=== PATIENT | male | born 1955 | race Caucasian/White ===

== ENCOUNTER → 2022-02-01 | Outpatient (REF) | payer MEDICARE, SELFPAY ==
[2022-02-01 08:18] LABS: Absolute Lymphocyte Count 1.79 X10^3/uL (0.83-4.51); Absolute Neutrophil Count 4.6 X10^3/uL (2.0-7.7); Basophil# 0.02 X10^3/uL; Basophil% 0.3 % (0-1); Eosinophil# 0.06 X10^3/uL; Eosinophils% 0.8 % (0-5); Hematocrit 39.4 % (40-54); Hemoglobin 13.4 g/dL (13.0-16.5); Lymphocyte # 1.79 X10^3/ul (0.83-4.51); Lymphocyte % 24.3 % (19-41); Mean Platelet Vol. 9.4 fl (6.2-12.0); Monocyte# 0.88 X10^3/uL; Monocyte% 11.9 % (0-10); NRBC Flagged by Analyzer 0 % (0-5); Neutrophil # 4.58 X10^3/uL (2.7-7.7); Platelet Count 214 K/mm3 (150-450); RBC Distribution Width CV 13.2 % (11.6-14.6); RBC Distribution Width SD 46.9 fl (35.1-43.9); Red Blood Count 4.06 M/mm3 (4.6-6.2); White Blood Count 7.4 K/mm3 (4.4-11.0)
[2022-02-01 08:45] LABS: Carbamazepine (Tegretol) 11.7 ug/mL (4.0-12.0)
[2022-02-01 08:47] LABS: Vitamin D,25 Hydroxy 34.4 ng/mL
[2022-02-01 08:49] LABS: ALB/GLOB Ratio 0.9 RATIO (0.9-2.4); AST(SGOT) 19 U/L (15-37); Alanine Aminotransfer ALT/SGPT 14 U/L (16-61); Albumin, Serum 3.4 g/dL (3.2-5.0); Alkaline Phosphatase 135 U/L (45-117); Anion Gap 9 (5-15); BUN 4 mg/dL (7-18); BUN/Creat Ratio 7.3 RATIO (10-20); Calcium,Total 8.2 mg/dL (8.5-10.1); Chloride 93 mmol/L (98-107); Creatinine, Serum 0.55 mg/dL (0.70-1.30); EST Glomerular Filtration Rate 159 mL/min (>60); Est Glom Filt Rate - Afr Amer 192 mL/min (>60); Globulin 3.9 g/dL (2.2-4.2); Glucose 82 mg/dL (74-106); Protein, Total 7.3 g/dL (6.4-8.2); Sodium Level 129 mmol/L (136-145)
== END ==
LOC: OLS.SW300 06:00
PROVIDERS: Visit Provider Internal Medicine
DX: J44.9 Chronic obstructive pulmonary disease, unspecified; Z79.899 Other long term (current) drug therapy
CPT/HCPCS: 36415; 80053; 80156; 82306; 85025

== ENCOUNTER → 2022-02-09 | Outpatient (REF) | payer MEDICARE, SELFPAY ==
[2022-02-09 09:35] LABS: Urine Sodium 41 mmol/L (Not Establ.)
[2022-02-09 10:24] LABS: Osmolality, Urine 639 mOsm/KG
== END ==
LOC: OLS.SW300 08:42
PROVIDERS: Visit Provider Internal Medicine
DX: R53.83 Other fatigue (principal); E87.1 Hypo-osmolality and hyponatremia; R53.1 Weakness
CPT/HCPCS: 83935; 84300

== ENCOUNTER → 2022-02-10 | Outpatient (REF) | payer MEDICARE, SELFPAY ==
[2022-02-10 07:37] LABS: Hematocrit 44.2 % (40-54); Hemoglobin 14.8 g/dL (13.0-16.5); Mean Corp Hgb Conc 33.5 g/dL (32-36); Mean Corpuscular Hgb 33.5 pg (27.0-32.0); Mean Platelet Vol. 9.3 fl (6.2-12.0); Platelet Count 319 K/mm3 (150-450); RBC Distribution Width CV 13.2 % (11.6-14.6); RBC Distribution Width SD 49.1 fl (35.1-43.9); Red Blood Count 4.42 M/mm3 (4.6-6.2); White Blood Count 5.5 K/mm3 (4.4-11.0)
[2022-02-10 07:56] LABS: ALB/GLOB Ratio 0.8 RATIO (0.9-2.4); AST(SGOT) 27 U/L (15-37); Alanine Aminotransfer ALT/SGPT 21 U/L (16-61); Albumin, Serum 3.6 g/dL (3.2-5.0); Alkaline Phosphatase 122 U/L (45-117); Anion Gap 8 (5-15); BUN 9 mg/dL (7-18); BUN/Creat Ratio 13.4 RATIO (10-20); Calcium,Total 9.1 mg/dL (8.5-10.1); Chloride 97 mmol/L (98-107); Creatinine, Serum 0.67 mg/dL (0.70-1.30); EST Glomerular Filtration Rate 125 mL/min (>60); Est Glom Filt Rate - Afr Amer 152 mL/min (>60); Globulin 4.6 g/dL (2.2-4.2); Glucose 107 mg/dL (74-106); Potassium 4.3 mmol/L (3.5-5.1); Protein, Total 8.2 g/dL (6.4-8.2); Sodium Level 133 mmol/L (136-145)
[2022-02-10 08:26] LABS: Vitamin B12 363 pg/mL (211-911)
== END ==
LOC: OLS.SW300 05:46
PROVIDERS: Visit Provider Internal Medicine
DX: R53.83 Other fatigue (principal); R53.1 Weakness
CPT/HCPCS: 36415; 80053; 82607; 84443; 85027

== ENCOUNTER → 2022-03-16 | Outpatient (CLI) | payer MEDICARE, MEDICAID, SELFPAY ==
--- NOTE | 2022-03-16 13:58 | CT_ITS ---
STUDY: CT SOFT TISSUE NECK WITH CONTRAST REASON FOR EXAM: Male, 66 years old. History of laryngeal carcinoma. RADIATION DOSAGE (If Supplied By Facility): CTDIvol = ( 17.90 ) mGy, DLP = ( 612.72 ) mGycm TECHNIQUE: The patient was scanned in a multi-detector CT scanner. High resolution transaxial imaging was performed following intravenous administration of IV 75mL Isovue-370. Sagittal and coronal images were reconstructed. Individualized dose optimization techniques were used for this CT. COMPARISON: None. FINDINGS: There is evidence of a 2.6 cm x 2.4 cm mass in the right parotid gland. There is also evidence of a 1.6 cm x 1.7 cm and 2 cm x 1.8 cm masses in the inferior aspect of the right parotid gland. Normal bilateral floor layer tile spaces. Normal bilateral parapharyngeal spaces. Calcified plaques at the level of the carotid bifurcations. Normal bilateral sublingual and submandibular glands and spaces. Normal visualized nasopharynx. Normal retropharyngeal space. Normal perivertebral space. There is evidence of a 3.4 cm by 2.9 cm x 3.5 cm solid mass in the right lateral oropharyngeal region. This extends from the base of the tongue and cephalad to the right oropharyngeal wall. There is evidence of a multiple enlarged right cervical lymph nodes. Surgical clips are seen along the posterior aspect of the mentioned right hypopharyngeal mass. The patient is status post laryngectomy. A tracheostomy tube is seen within the trachea. Normal bilateral lobes of the thyroid gland. Normal visualized pulmonary apices. Opacification of the right maxillary sinus. There is multilevel degenerative changes of the cervical spine. CT/Soft Tissue Neck WITH Contrast IMPRESSION: There is a 3.4 cm x 2.9 cm x 3.5 centimeter solid mass in the right lateral oropharyngeal area extending from base of the tongue to the right paraoropharyngeal wall. Right cervical lymphadenopathy. Masses in the right parotid gland. Partial opacification of the right maxillary sinus. Electronically Signed: Richard Rowe MD at 13:32 EDT ,
--- NOTE | 2022-03-16 13:58 | CT_ITS ---
STUDY: CT BRAIN WITH AND WITHOUT CONTRAST REASON FOR EXAM: Male, 66 years old. MASS RADIATION DOSAGE (If Supplied By Facility): CTDIvol = ( 44.99 ) mGy, DLP = ( 1715.95 ) mGycm TECHNIQUE: Transaxial CT imaging of the brain was performed pre and post contrast administration. The examination was performed with intravenous administration of IV 75mL Isovue-370. Individualized dose optimization techniques were used for this CT. COMPARISON: None. FINDINGS: Normal soft tissue structures. Normal calvarium. Moderate atrophy and periventricular white matter ischemic changes.. Normal basal ganglia and thalami. Normal brainstem. Normal cerebellum. There is no intracranial hemorrhage. There are no findings of an acute ischemic infarction. No enhancing lesions following contrast administration. Moderate mucosal thickening in the right maxillary sinus CT/Brain/Head W/WO Contrast IMPRESSION: Moderate atrophy and periventricular white matter ischemic changes. No evidence for metastatic disease Incidental finding of nonspecific mass in the visualized portion of the right parotid gland which demonstrates diffusely increased enhancement Recommend dedicated CT or MRI parotid gland for further evaluation Electronically Signed: Luis Antonio Paul MD at 21:43 EDT ,
== END | disposition home or self-care (01) ==
PROVIDERS: Referring Provider Internal Medicine; Visit Provider Internal Medicine
DX: H93.8X1 Other specified disorders of right ear (principal); Z85.21 Personal history of malignant neoplasm of larynx
CPT/HCPCS: 70470; 70491; Q9967

== ENCOUNTER → 2022-04-20 | Outpatient (REF) | payer MEDICARE, SELFPAY ==
[2022-04-20 10:46] LABS: Anion Gap 10 (5-15); BUN 3 mg/dL (7-18); BUN/Creat Ratio 6.4 RATIO (10-20); Chloride 90 mmol/L (98-107); Creatinine, Serum 0.47 mg/dL (0.70-1.30); EST Glomerular Filtration Rate 188 mL/min (>60); Est Glom Filt Rate - Afr Amer 228 mL/min (>60); Glucose 93 mg/dL (74-106); Potassium 4.2 mmol/L (3.5-5.1); Sodium Level 126 mmol/L (136-145)
[2022-04-22 09:34] LABS: ALB/GLOB Ratio 0.8 RATIO (0.9-2.4); AST(SGOT) 10 U/L (15-37); Alanine Aminotransfer ALT/SGPT 12 U/L (16-61); Albumin, Serum 3.6 g/dL (3.2-5.0); Alkaline Phosphatase 125 U/L (45-117); Globulin 4.5 g/dL (2.2-4.2); Protein, Total 8.1 g/dL (6.4-8.2)
[2022-04-22 09:51] LABS: Hematocrit 41.3 % (40-54); Hemoglobin 13.5 g/dL (13.0-16.5); Mean Corp Hgb Conc 32.7 g/dL (32-36); Mean Corpuscular Hgb 34.1 pg (27.0-32.0); Mean Corpuscular Volume 104.3 fL (80-94); Mean Platelet Vol. 9.6 fl (6.2-12.0); Platelet Count 457 K/mm3 (150-450); RBC Distribution Width CV 15.2 % (11.6-14.6); RBC Distribution Width SD 58.5 fl (35.1-43.9); Red Blood Count 3.96 M/mm3 (4.6-6.2); White Blood Count 13.4 K/mm3 (4.4-11.0)
== END ==
LOC: OLS.SW 09:53
PROVIDERS: Visit Provider Internal Medicine
DX: R53.83 Other fatigue (principal); E03.9 Hypothyroidism, unspecified; Z79.899 Other long term (current) drug therapy
CPT/HCPCS: 36415; 80053; 84443; 85027

== ENCOUNTER → 2022-07-07 | Outpatient (REF) | payer MEDICARE, MEDICAID, SELFPAY ==
[2022-07-07 09:18] LABS: T3 Total - Triiodothyronine 0.71 ng/mL (0.6-1.81)
[2022-07-07 09:46] LABS: T4 Total, Thyroxin 4.3 ug/dL (4.5-12.1)
== END ==
LOC: OLS.SW 05:00
PROVIDERS: Visit Provider Family Medicine
DX: E03.9 Hypothyroidism, unspecified (principal)
CPT/HCPCS: 36415; 84436; 84443; 84480

== ENCOUNTER 2022-07-11 15:56 | Inpatient (IN) | payer MEDICARE, MEDICAID, SELFPAY ==
[2022-07-11] VITALS (27 sets, daily range): BP systolic 46–211; BP diastolic 29–148; PULSE 86–126; RESP 14–24; TEMP 36.1–36.8; O2SAT 92–100; BMI 25.1; BMI 23.7
--- NOTE | 2022-07-11 16:03 | EKG12_ITS ---
Test Reason : sob Blood Pressure : / mmHG Vent. Rate : 122 BPM Atrial Rate : 122 BPM P-R Int : 224 ms QRS Dur : 080 ms QT Int : 300 ms P-R-T Axes : 070 -57 074 degrees QTc Int : 427 ms Sinus tachycardia with 1st degree A-V block with Premature atrial complexes Left axis deviation Septal infarct , age undetermined Abnormal ECG Confirmed by ANKUSH AMAYA, LAST ([id number]), legal editor IGGY RAWLS ([id number]) on 07/12/2022 8:40:49 AM Referred By: Davidson Confirmed By:LAST LECHUGA MD
--- NOTE | 2022-07-11 16:03 | ED.VIS.DYS ---
HPI History of Present Illness Chief Complaint: Shortness of Breath Narrative Narrative: 66-year-old male presenting with altered mental status, dyspnea. He is unable to give a history. EMS reports that his baseline is able to communicate by writing. He is usually alert and oriented. EMS states that he acutely became ill about an hour ago, in the [place] [facility] was able to suction 600 cc of saliva out of his trach PFSH PFSH Medical History (Updated 07/11/22 @ 16:09 by Maria C Rivas) Anxiety Blindness of left eye COPD (chronic obstructive pulmonary disease) GERD (gastroesophageal reflux disease) Major depressive disorder Malignant neoplasm of larynx Home Medications alprazolam 0.5 mg tablet 0.5 mg PO BID 07/11/22 [History Last Taken Unknown] carbamazepine 300 mg capsule,extended release [id number] 300 mg PO BID 07/11/22 [History Last Taken Unknown] dexamethasone 2 mg tablet 2 mg PO DAILY 07/11/22 [History Last Taken Unknown] gabapentin 400 mg capsule 400 mg PO TID 07/11/22 [History Last Taken Unknown] guaifenesin 100 mg/5 mL oral liquid 200 mg PO Q4H PRN Cough 07/11/22 [History Last Taken Unknown] mirtazapine 45 mg tablet 45 mg PO DAILY 07/11/22 [History Last Taken Unknown] oxycodone 10 mg tablet 10 mg PO Q4H PRN PRN Pain 07/11/22 [History Last Taken Unknown] pantoprazole 40 mg tablet,delayed release 40 mg PO DAILY 07/11/22 [History Last Taken Unknown] zolpidem 5 mg tablet 5 mg PO DAILY 07/11/22 [History Last Taken Unknown] Allergy/AdvReac Type Severity Reaction Status Date / Time No Known Allergies Allergy Verified 07/11/22 16:06 Social History Smoking Status: Unknown if ever smoked EXAM Physical Exam Const Vital Signs: 07/11/22 15:57 07/11/22 16:09 07/11/22 16:11 Temperature 97.8 F Temperature Source Temporal Pulse Rate 122 H 120 H Respiratory Rate 20 H 24 H Respiratory Effort Respiratory Pattern Blood Pressure 211/92 H 211/92 H Blood Pressure Mean 131 131 Pulse Ox 96 96 95 Oxygen Delivery Method Trach Collar Trach Collar Trach Collar Oxygen Flow Rate (L/min) 10 10 10 Fraction of Inspired Oxygen (FIO2) 07/11/22 16:24 07/11/22 16:51 07/11/22 17:04 Temperature 97.4 F L Temperature Source Temporal Pulse Rate 118 H 122 H Respiratory Rate 21 H 21 H Respiratory Effort Accessory Muscle Use Respiratory Pattern Tachypnea Blood Pressure 195/90 H 192/87 H Blood Pressure Mean 125 122 Pulse Ox 94 100 Oxygen Delivery Method Trach Collar Mechanical Ventilator Oxygen Flow Rate (L/min) Fraction of Inspired Oxygen (FIO2) 07/11/22 17:04 07/11/22 17:00 07/11/22 18:05 Temperature 97.8 F 97.0 F L Temperature Source Temporal Temporal Pulse Rate 122 H 126 H 118 H Respiratory Rate 21 H 14 17 Respiratory Effort Respiratory Pattern Blood Pressure 192/87 H 126/70 H Blood Pressure Mean 122 88 Pulse Ox 100 100 100 Oxygen Delivery Method Mechanical Ventilator Mechanical Ventilator Oxygen Flow Rate (L/min) Fraction of Inspired Oxygen (FIO2) 40 07/11/22 18:05 Temperature Temperature Source Pulse Rate 118 H Respiratory Rate 16 Respiratory Effort Respiratory Pattern Blood Pressure 126/70 H Blood Pressure Mean 88 Pulse Ox 100 Oxygen Delivery Method Mechanical Ventilator Oxygen Flow Rate (L/min) Fraction of Inspired Oxygen (FIO2) MDM MDM MDM Narrative Medical decision making narrative: 66-year-old male presenting with altered mental status, tachypnea, tachycardia. Is unable to give me a significant history. I did attempt to call his sister who is his POA on record and was unable to get an answer back. I did speak with Dr. Pinto who sent some paperwork via fax which was pending. I did try to call his ENT of record, his oncologist of record and was placed on hold. Patient's paperwork states that he is full code. Since I cannot contact anybody to discuss his care I do believe the need to protect his airway. ABG was obtained and shows acidosis as well as hypercapnia. I did attempt to try hospice since he had already had a consult with them and was unable to get a hold of them. I spoke with Dr. Vázquez because the patient has had previous tracheostomy. 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 Recent diagnosis of squamous cell in the oropharynx in 2021 with extension to the soft palate and tongue and right lymph nodes. Dr. Vázquez recommended initially placing a 6-0 ET tube. Flexible bedside laryngoscope utilized by ED physician to assess the patient's ostomy. Appears to be patent. Initially believed the patient needed to be intubated to a depth of 20 cm. This was placed and this was visualized to be right mainstem bronchus on my interpretation of the chest x-ray. This was pulled back. Repeat chest x-ray shows good placement of this on my interpretation. Chest x-ray also on my interpretation also shows bilateral infiltrates. Patient had sepsis work-up initiated given vital signs and altered mental status. Patient apparently treated with vancomycin and Zosyn. CBC to assess white blood cell count, differential. He has an elevated leukocytosis of 23.7. Hemoglobin hematocrit are stable at 12.3/37.9. Platelets 547. Coagulation studies as part of sepsis work-up are normal PT/INR normal. CMP to assess liver function, liver function, electrolytes, glucose, anion gap. Sodium slightly low at 129. Chloride slight low 91. BUN 19 and creatinine 0.93. Glucose slightly elevated to 51 without anion gap. LFTs are unremarkable. Lactic acid returned at 2.3. Urinalysis is negative for infection. EtOH was obtained due to patient's history of EtOH abuse which I was able to find on [facility]. There is limited records on this however. I went through multiple notes which do not have any information on them at all. Eventually Dr. Pinto was able to send over some paperwork for my review. At this point the patient is stable. I still was not able to talk to any of the family. At this point the patient will need to be admitted. Dr. Vázquez stated that he would happy to help with that he care that he needed from his perspective. I discussed the case with Dr. Olvera as well. Prior to transfer to the floor patient had trach collar placed. Impression: 1. Bilateral pneumonia 2. Hypercapnic respiratory failure 3. Leukocytosis 4. Altered mental status 5. History of squamous cell cancer 6. Hyperglycemia 7. Lactic acidosis 8. Sepsis Lab Data Attestation: I reviewed the patient's lab results. Labs: Laboratory Results - last 24 hr 07/11/22 07/11/22 07/11/22 16:05 16:05 16:05 WBC 23.7 H RBC 3.70 L Hgb 12.3 L Hct 37.9 L MCV 102.4 H MCH 33.2 H MCHC 32.5 RDW Std Deviation 46.5 H RDW Coeff of Judd 12.3 Plt Count 547 H MPV 9.4 Immature Gran % (Auto) 1.400 H Neut % (Auto) 66.8 Lymph % (Auto) 26.1 Summers % (Auto) 4.4 Eos % (Auto) 0.8 Baso % (Auto) 0.5 Absolute Neuts (auto) 15.8 H Absolute Lymphs (auto) 6.18 H Nucleated RBC % 0 Differential Comment SCANNED PT 14.3 INR 1.1 APTT 32.0 Sodium 129 L Potassium 4.1 Chloride 91 L Carbon Dioxide 26.0 Anion Gap 12 BUN 19 H Creatinine 0.93 Estim Creat Clear Calc 74.57 Est GFR (MDRD) Af Amer 104 Est GFR (MDRD) Non-Af 86 BUN/Creatinine Ratio 20.5 H Glucose 251 H Lactic Acid Calcium 9.6 Total Bilirubin 0.30 AST 17 ALT 24 Alkaline Phosphatase 113 Total Protein 9.3 H Albumin 3.8 Globulin 5.5 H Albumin/Globulin Ratio 0.7 L Urine Color Urine Clarity Urine pH Ur Specific [place] Urine Protein Urine Glucose (UA) Urine Ketones Urine Occult Blood Urine Nitrite Urine Bilirubin Urine Urobilinogen Ur Leukocyte Esterase Urine RBC Urine WBC Ur Squamous Epith Cells Urine Bacteria Urine Mucus Ethyl Alcohol 07/11/22 07/11/22 07/11/22 16:05 16:38 17:37 WBC RBC Hgb Hct MCV MCH MCHC RDW Std Deviation RDW Coeff of Judd Plt Count MPV Immature Gran % (Auto) Neut % (Auto) Lymph % (Auto) Summers % (Auto) Eos % (Auto) Baso % (Auto) Absolute Neuts (auto) Absolute Lymphs (auto) Nucleated RBC % Differential Comment PT INR APTT Sodium Potassium Chloride Carbon Dioxide Anion Gap BUN Creatinine Estim Creat Clear Calc Est GFR (MDRD) Af Amer Est GFR (MDRD) Non-Af BUN/Creatinine Ratio Glucose Lactic Acid 2.3 H* Calcium Total Bilirubin AST ALT Alkaline Phosphatase Total Protein Albumin Globulin Albumin/Globulin Ratio Urine Color Yellow Urine Clarity Clear Urine pH 6.0 Ur Specific [place] 1.015 Urine Protein 30 H Urine Glucose (UA) Normal Urine Ketones Negative Urine Occult Blood Negative Urine Nitrite Negative Urine Bilirubin Negative Urine Urobilinogen Normal Ur Leukocyte Esterase Negative Urine RBC 0-5 SEEN Urine WBC 0-5 SEEN Ur Squamous Epith Cells 0 SEEN Urine Bacteria 0 SEEN Urine Mucus 0 SEEN Ethyl Alcohol < 3.0 ABG Data ABG results: ABG 07/11/22 07/11/22 16:46 18:09 Specimen Type ART ART Sample Site R Radial pH 7.16 L* 7.23 L Bicarbonate Actual 29.1 H 27.6 H Total CO2 32 30 Base Excess 0 0 O2 Saturation 91 L 97 O2 % 40 ABG pCO2 82.3 H* 65.3 H ABG pO2 81 113 H Radhames Test Positive Respiration Rate 14 O2 Delivery Device T Collar Adult Vent Liter Flow 10.0 Vent Mode AC Tidal Volume 400 POC PEEP 5 Crit Call To/Read Back Yes Blood Gas Notified Whom javier Radiography Diagnostic Testing: Clinical Impression(s) from Imaging Studies Chest X-Ray 07/11/22 16:35 IMPRESSION: Question COPD. There is chronic interstitial changes versus acute interstitial pneumonia the lung bases. Electronically Signed: Marcell Eason DO at 16:47 EST Reading Location ID and State: [employer] [facility] [employer] Tel [phone], Service support , Chest X-Ray 07/11/22 17:10 IMPRESSION: Endotracheal tube with its tip in the right mainstem bronchus. See recommendation above. Electronically Signed: Marcell Eason DO at 17:34 EST Reading Location ID and State: [employer] [facility] [employer] Tel [phone], Service support , Chest X-Ray 07/11/22 17:10 IMPRESSION: Satisfactory readjustment of the endotracheal tube position when compared with study of 5 minutes earlier. Electronically Signed: Marcell Eason DO at 17:35 EST Reading Location ID and State: [employer] [facility] [employer] Tel [phone], Service support , Critical Care Time Critical care time (excluding procedures): 30-74 minutes (40), Including time spent:, Discussing w/Consultants, Arranging Admission or Transfer and Performing Direct Patient Care at Bedside Discharge Plan Triage Chief Complaint: Shortness of Breath ED Provider: Juan Miguel Sierra Dx/Rx/DC Orders Prescriptions: No Action gabapentin 400 mg capsule 400 mg PO TID guaifenesin 100 mg/5 mL Liquid 200 mg PO Q4H PRN (Reason: Cough) alprazolam 0.5 mg tablet 0.5 mg PO BID dexamethasone 2 mg tablet 2 mg PO DAILY pantoprazole 40 mg tablet,delayed release (DR/EC) 40 mg PO DAILY mirtazapine 45 mg tablet 45 mg PO DAILY zolpidem 5 mg tablet 5 mg PO DAILY carbamazepine 300 mg capsule, ER multiphase 12 hr 300 mg PO BID oxycodone 10 mg tablet 10 mg PO Q4H PRN PRN (Reason: Pain) Primary Care Provider: Guillermo Pinto Referrals: Guillermo Pinto MD [Primary Care Provider] -
[2022-07-11 16:34] LABS: Absolute Lymphocyte Count 6.18 X10^3/uL (0.83-4.51); Absolute Neutrophil Count 15.8 X10^3/uL (2.0-7.7); Basophil# 0.11 X10^3/uL; Basophil% 0.5 % (0-1); Eosinophil# 0.18 X10^3/uL; Eosinophils% 0.8 % (0-5); Hematocrit 37.9 % (40-54); Hemoglobin 12.3 g/dL (13.0-16.5); Lymphocyte # 6.18 X10^3/ul (0.83-4.51); Lymphocyte % 26.1 % (19-41); Mean Corp Hgb Conc 32.5 g/dL (32-36); Mean Corpuscular Hgb 33.2 pg (27.0-32.0); Mean Corpuscular Volume 102.4 fL (80-94); Mean Platelet Vol. 9.4 fl (6.2-12.0); Monocyte# 1.03 X10^3/uL; Monocyte% 4.4 % (0-10); NRBC Flagged by Analyzer 0 % (0-5); Neutrophil # 15.83 X10^3/uL (2.7-7.7); Neutrophil % 66.8 % (47-70); POSITIVE DIFFERENTIAL YES; Platelet Count 547 K/mm3 (150-450); RBC Distribution Width CV 12.3 % (11.6-14.6); RBC Distribution Width SD 46.5 fl (35.1-43.9); White Blood Count 23.7 K/mm3 (4.4-11.0)
--- NOTE | 2022-07-11 16:35 | RAD_ITS ---
STUDY: X-RAY CHEST REASON FOR EXAM: Male, 66 years old. Dyspnea. Copious amount of secretions requiring suction. TECHNIQUE: Single AP portable view of the chest. COMPARISON: None. FINDINGS: The lungs are hyperexpanded. There is interstitial markings at the lung bases thought to be chronic however acute infiltrate cannot be ruled out. There is no demonstrated pleural abnormality. Normal size heart. Normal mediastinum and deirdre. Normal visualized pulmonary arteries. There is atherosclerotic calcification of the aortic arch with tortuosity. The thoracic spine is obscured by the mediastinum. Normal visualized ribs, clavicles, and shoulders. There is no demonstrated abnormality of the visualized soft tissue structures of the upper abdomen. RAD/Chest 1 View (Portable) IMPRESSION: Question COPD. There is chronic interstitial changes versus acute interstitial pneumonia the lung bases. Electronically Signed: Marcell Eason DO at 16:47 EST ,
[2022-07-11 16:40] LABS: Differential Indicated SCAN CRITERIA MET; International Normalized Ratio 1.1; Prothrombin Time (Protime)PT. 14.3 SECONDS (11.7-14.9)
[2022-07-11 16:45] LABS: Bacteria 0 SEEN /hpf (None Seen); Mucous, Urine 0 SEEN /hpf (<or=2+); Squamous Epithelial Cells - UA 0 SEEN /hpf (0-5)
[2022-07-11 16:51] LABS: ALB/GLOB Ratio 0.7 RATIO (0.9-2.4); AST(SGOT) 17 U/L (15-37); Alanine Aminotransfer ALT/SGPT 24 U/L (16-61); Albumin, Serum 3.8 g/dL (3.2-5.0); Alkaline Phosphatase 113 U/L (45-117); Anion Gap 12 (5-15); BUN 19 mg/dL (7-18); BUN/Creat Ratio 20.5 RATIO (10-20); Calcium,Total 9.6 mg/dL (8.5-10.1); Chloride 91 mmol/L (98-107); Creatinine, Serum 0.93 mg/dL (0.70-1.30); EST Glomerular Filtration Rate 86 mL/min (>60); Est Glom Filt Rate - Afr Amer 104 mL/min (>60); Estimated Creatinine Clearance 74.57 ml/min; Globulin 5.5 g/dL (2.2-4.2); Glucose 251 mg/dL (74-106); Potassium 4.1 mmol/L (3.5-5.1); Protein, Total 9.3 g/dL (6.4-8.2); Sodium Level 129 mmol/L (136-145)
[2022-07-11 16:56] LABS: Base Excess 0 mmol/L (-2 to +2); Bicarbonate 29.1 mmol/L (22-26); Blood Gas Specimen Type ART; O2 Delivery Device T Collar; PO2 81 mmHG (75-100); SO2 91 % (95-99); Total Carbon Dioxide 32 mmol/L; pCO2 82.3 mmHg (35-45); pH 7.16 (7.35-7.45)
--- NOTE | 2022-07-11 16:59 | NURSING ---
Dr. Heath, Dr. Sierra at bedside with RT to intubate through established trach stoma at this time.
[2022-07-11 17:00] LABS: Color, Urine Yellow (Yellow); Glucose, Dipstick Normal (Normal); Ketone-Dipstick Negative (Negative); Leukocyte Esterase-Dipstick Negative /ul (Negative); Nitrite-Dipstick Negative (Negative); Occult Blood-Urine Negative /ul (Negative); Protein-Dipstick 30 mg/dl (Negative); Specific Gravity, Urine 1.015 (1.002-1.030); Urine Bilirubin Dipstick Negative (Negative); Urine Clarity Clear (Clear); Urine Urobilinogen Normal (Normal)
--- NOTE | 2022-07-11 17:03 | NURSING ---
ET tube in at 14 to stoma
[2022-07-11 17:06] LABS: Differential Comment SCANNED
--- NOTE | 2022-07-11 17:10 | RAD_ITS ---
STUDY: X-RAY CHEST REASON FOR EXAM: Male, 66 years old. Endotracheal tube placement. Second attempt. TECHNIQUE: Single AP portable view of the chest. COMPARISON: July 11, 2022 (1705 hours). FINDINGS: Again seen is the endotracheal tube. The tip now lies approximately 3 cm above the aurora. Lungs are unchanged. There is no demonstrated pleural abnormality. Normal size heart. There is no change in the mediastinum, deirdre, pulmonary arteries or aorta. No osseous changes. There is no demonstrated abnormality of the visualized soft tissue structures of the upper abdomen. RAD/Chest 1 View (Portable) IMPRESSION: Satisfactory readjustment of the endotracheal tube position when compared with study of 5 minutes earlier. Electronically Signed: Marcell Eason DO at 17:35 EST ,
--- NOTE | 2022-07-11 17:10 | RAD_ITS ---
STUDY: X-RAY CHEST REASON FOR EXAM: Male, 66 years old. Endotracheal tube placement. First attempt. TECHNIQUE: Single AP portable view of the chest. COMPARISON: July 11, 2022 (1633 hours). FINDINGS: There is a endotracheal tube placed through a tracheostomy. The tip extends into the right mainstem bronchus approximately 3 cm beyond the aurora. This should be pulled back 5 cm. There is patchy density peripherally in the right upper lobe. The lungs are otherwise hyperexpanded. There is no demonstrated pleural abnormality. Normal size heart. Normal mediastinum and deirdre. Normal visualized pulmonary arteries. Normal visualized aortic arch and descending thoracic aorta. No osseous changes. There are surgical clips in the base of the neck. There is no demonstrated abnormality of the visualized soft tissue structures of the upper abdomen. RAD/Chest 1 View (Portable) IMPRESSION: Endotracheal tube with its tip in the right mainstem bronchus. See recommendation above. Electronically Signed: Marcell Eason DO at 17:34 EST ,
[2022-07-11 17:13] LABS: Red Blood Cells-Urine 0-5 SEEN /hpf (0-5); White Blood Cells 0-5 SEEN /hpf (0-5)
[2022-07-11] MEDS: Propofol 10MG/Ml 1,000 MG/100 ML Bottle 4.5 MG CONT INF (17:29)
[2022-07-11] MEDS: 0.9% Normal Saline 1,000 ML 999 ML IV ×4 (17:34→22:52)
--- NOTE | 2022-07-11 17:43 | CPS ---
This RT and Ishan LATCHER at bedside. An endotracheal tube was placed in the patient's stoma. Patient is post laryngectomy. A 7.5 ET tub was placed at 14 cm at the stoma. An Xray was obtained. It showed Right Main Stem broch. This RT withdrew ET tube 4 cm and an additonal X-ray was obatined. Dr. Sierra aware at this time Marii LATCHER
--- NOTE | 2022-07-11 17:47 | CPS ---
This RT and Ishan [employer] per Dr. Olvera, Dr. Sierra, and Dr. Delgadillo are all in aggreement that a trach needs placed. Per he recommendations were to start was a 6 Shiley. A 6 shiley was placed by Ishan [employer] at 1733, there was an audible leak. The decision was made to place an 8 shiley. All this was done with no distress to the patient. Marii SPENCER
[2022-07-11 18:15] LABS: Allen Test Positive; Base Excess 0 mmol/L (-2 to +2); Bicarbonate 27.6 mmol/L (22-26); Blood Gas Specimen Type ART; FI02 40; Mode AC; O2 Delivery Device Adult Vent; PEEP 5; PO2 113 mmHG (75-100); RR 14; SITE R Radial; SO2 97 % (95-99); Total Carbon Dioxide 30 mmol/L; Vt 400; pCO2 65.3 mmHg (35-45); pH 7.23 (7.35-7.45)
[2022-07-11 18:37] LABS: Alcohol, Blood (Medical)-Serum < 3.0 mg/dL
[2022-07-11] MEDS: Tetracaine/Benzocaine/Butamben 1 APPLIC TOPICAL (18:39)
--- NOTE | 2022-07-11 19:18 | HP.PCM.HOS_ITS ---
HPI - General General Date of Admission: 07/11/22 Date of Service: 07/11/22 Chief Complaint: Altered mental status HPI Narrative VIRIDIANA ALMARAZ, is a 66 M with a significant history of laryngeal cancer status post surgery and radiation and who lives at the long-term presenting to the emergency department with altered mental status. History was taken from Dr. Sierra as patient could not provide adequate history secondary to patient being on a ventilator; and being unable to write. However, patient's murmured that he was at the Hospital because of shortness of breath. Reportedly at the long-term about 600cc RCC was suction from his trach stoma. At the Emergency department per recommendation form Dr. Vázquez, ENT who recom mended placing ENT tube in tracheostomy and place the patient on ventilator. Per emergency department doctor, Dr. Vázquez will be available for inpatient consult if needed. [facility] Medical History (Updated 07/11/22 @ 21:[address] Pedro Dyer MD) Anxiety Blindness of left eye COPD (chronic obstructive pulmonary disease) GERD (gastroesophageal reflux disease) Major depressive disorder Malignant neoplasm of larynx Home Medications alprazolam 0.5 mg tablet 0.5 mg PO BID ANXIETY 07/11/22 [History Last Taken 07/11/22] carbamazepine 300 mg capsule,extended release [id number] 300 mg PO BID . 07/11/22 [History Last Taken 07/11/22] dexamethasone 2 mg tablet 2 mg PO DAILY . 07/11/22 [History Last Taken 07/11/22] docusate sodium 100 mg capsule (Colace) 100 mg PO BID CONSTIPATION 07/11/22 [His tory Last Taken 07/11/22] gabapentin 400 mg capsule 400 mg PO TID PAIN 07/11/22 [History Last Taken 07/11/22] guaifenesin 100 mg/5 mL oral liquid 200 mg PO Q4H PRN Cough 07/11/22 [History Last Taken Unknown] melatonin 5 mg tablet 5 mg PO QHS SLEEP 07/11/22 [History Last Taken 07/10/22] mirtazapine 45 mg tablet 45 mg PO DAILY . 07/11/22 [History Last Taken 07/10/22] oxycodone 10 mg tablet 10 mg PO Q4H PRN PRN Pain 07/11/22 [History Last Taken 07/11/22] pantoprazole 40 mg tablet,delayed release 40 mg PO DAILY GERD 07/11/22 [History Last Taken 07/11/22] zolpidem 5 mg tablet 5 mg PO DAILY SLEEP 07/11/22 [History Last Taken 07/10/22] Allergy/AdvReac Type Severity Reaction Status Date / Time No Known Allergies Allergy Verified 07/11/22 16:06 Family History Other Cancer Surgical History History of laryngectomy Social History Smoking Status: Former smoker ROS Review of Systems ROS Unobtainable: due to endotracheal tube Vital Signs Vital Signs Vital Signs: 07/11/22 15:57 07/11/22 16:09 07/11/22 16:11 Temperature 97.8 F Temperature Source Temporal Pulse Rate 122 H 120 H Respiratory Rate 20 H 24 H Respiratory Effort Respiratory Pattern Blood Pressure 211/92 H 211/92 H Blood Pressure Mean 131 131 Pulse Ox 96 96 95 Oxygen Delivery Method Trach Collar Trach Collar Trach Collar Oxygen Flow Rate (L/min) 10 10 10 Fraction of Inspired Oxygen (FIO2) 07/11/22 16:24 07/11/22 16:51 07/11/22 17:04 Temperature 97.4 F L Temperature Source Temporal Pulse Rate 118 H 122 H Respiratory Rate 21 H 21 H Respiratory Effort Accessory Muscle Use Respiratory Pattern Tachypnea Blood Pressure 195/90 H 192/87 H Blood Pressure Mean 125 122 Pulse Ox 94 100 Oxygen Delivery Method Trach Collar Mechanical Ventilator Oxygen Flow Rate (L/min) Fraction of Inspired Oxygen (FIO2) 07/11/22 17:04 07/11/22 17:00 07/11/22 18:05 Temperature 97.8 F 97.0 F L Temperature Source Temporal Temporal Pulse Rate 122 H 126 H 118 H Respiratory Rate 21 H 14 17 Respiratory Effort Respiratory Pattern Blood Pressure 192/87 H 126/70 H Blood Pressure Mean 122 88 Pulse Ox 100 100 100 Oxygen Delivery Method Mechanical Ventilator Mechanical Ventilator Oxygen Flow Rate (L/min) Fraction of Inspired Oxygen (FIO2) 40 07/11/22 18:05 Temperature Temperature Source Pulse Rate 118 H Respiratory Rate 16 Respiratory Effort Respiratory Pattern Blood Pressure 126/70 H Blood Pressure Mean 88 Pulse Ox 100 Oxygen Delivery Method Mechanical Ventilator Oxygen Flow Rate (L/min) Fraction of Inspired Oxygen (FIO2) Weight Weight: 75 kg Body Mass Index (BMI) 25.1 Physical Exam Narrative Physical exam: General: Well-nourished, well-developed. Head: Normocephalic, atraumatic, no tenderness Eyes: Vision is grossly intact. Patient does not follow commands to do extraocular eye movements. ENT: ET tube in place. No trauma, dry mucous membranes, no rhinorrhea Neck: Nontender, No thyromegaly. CVS: Tachycardia. S1-S2 present. No murmur, gallop or rub. Respiratory : Diminished bilaterally, chest wall nontender, no wheezing Abdomen: Soft, nontender, nondistended, normal bowel sounds, no masses : Deferred Back: Nontender, no CVA tenderness, no midline spinal tenderness, deformities, step-offs Extremities: Cold feet. Nontender full range of motion, no trauma Skin: Normal color, no trauma, abrasions Neuro: Alert, oriented, cranial nerves II through XII grossly intact. Psychiatry: Normal mood. Normal affect. Not depressed. Not anxious. Results Lab / Micro Data Result Diagrams: 07/11/22 16:05 07/11/22 16:05 Labs: Laboratory Results - last 24 hr 07/11/22 16:05: WBC 23.7 H, RBC 3.70 L, Hgb 12.3 L, Hct 37.9 L, MCV 102.4 H, MCH 33.2 H, MCHC 32.5, RDW Std Deviation 46.5 H, RDW Coeff of Judd 12.3, Plt Count 547 H, MPV 9.4, Immature Gran % (Auto) 1.400 H, Neut % (Auto) 66.8, Lymph % (Auto) 26.1, [place] % (Auto) 4.4, Eos % (Auto) 0.8, Baso % (Auto) 0.5, Absolute Neuts (auto) 15.8 H, Absolute Lymphs (auto) 6.18 H, Nucleated RBC % 0, Differential Comment SCANNED 07/11/22 16:05: PT 14.3, INR 1.1, APTT 32.0 07/11/22 16:05: Sodium 129 L, Potassium 4.1, Chloride 91 L, Carbon Dioxide 26.0, Anion Gap 12, BUN 19 H, Creatinine 0.93, Estim Creat Clear Calc 74.57, Est GFR (MDRD) Af Amer 104, Est GFR (MDRD) Non-Af 86, BUN/Creatinine Ratio 20.5 H, Glucose 251 H, Calcium 9.6, Total Bilirubin 0.30, AST 17, ALT 24, Alkaline Phosphatase 113, Total Protein 9.3 H, Albumin 3.8, Globulin 5.5 H, Albumin/Globulin Ratio 0.7 L 07/11/22 16:05: Lactic Acid 2.3 H* 07/11/22 16:38: Urine Color Yellow, Urine Clarity Clear, Urine pH 6.0, Ur Specific [place] 1.015, Urine Protein 30 H, Urine Glucose (UA) Normal, Urine Ketones Negative, Urine Occult Blood Negative, Urine Nitrite Negative, Urine Bilirubin Negative, Urine Urobilinogen Normal, Ur Leukocyte Esterase Negative, Urine RBC 0-5 SEEN, Urine WBC 0-5 SEEN, Ur Squamous Epith Cells 0 SEEN, Urine Bacteria 0 SEEN, Urine Mucus 0 SEEN 07/11/22 17:37: Ethyl Alcohol < 3.0 ABG Data ABG results: ABG 07/11/22 07/11/22 16:46 18:09 Specimen Type ART ART Sample Site R Radial pH 7.16 L* 7.23 L Bicarbonate Actual 29.1 H 27.6 H Total CO2 32 30 Base Excess 0 0 O2 Saturation 91 L 97 O2 % 40 ABG pCO2 82.3 H* 65.3 H ABG pO2 81 113 H Radhames Test Positive Respiration Rate 14 O2 Delivery Device T Collar Adult Vent Liter Flow 10.0 Vent Mode AC Tidal Volume 400 POC PEEP 5 Crit Call To/Read Back Yes Blood Gas Notified Whom javier Radiology Impression Chest X-Ray 07/11/22 16:35 IMPRESSION: Question COPD. There is chronic interstitial changes versus acute interstitial pneumonia the lung bases. Electronically Signed: Marcell Eason DO at 16:47 EST Reading Location ID and State: [facility] / [place] Tel [phone], Service support , Chest X-Ray 07/11/22 17:10 IMPRESSION: Endotracheal tube with its tip in the right mainstem bronchus. See recommendation above. Electronically Signed: Marcell Eason DO at 17:34 EST Reading Location ID and State: [facility] / [place] Tel [phone], Service support , Chest X-Ray 07/11/22 17:10 IMPRESSION: Satisfactory readjustment of the endotracheal tube position when compared with study of 5 minutes earlier. Electronically Signed: Marcell Eason DO at 17:35 EST Reading Location ID and State: [facility] / [place] Tel [phone], Service support , Assessment & Plan Assessment/Plan (1) Sepsis: (2) Pneumonia: (3) Respiratory failure with hypercapnia: PLAN: Plan Sepsis secondary to pneumonia/acute hypercapnic respiratory failure The patient presented with sepsis due to (Pneumonia) with acute sepsis related organ dysfunction as evidenced by (lactic acidosis and acute respiratory failure ). SIRS criteria: Respiratory rate more than 20 Heart rate more than 90 WBC more than 12,000 ( 23,700 on presentation; bandemia of 1.4%); trend. organ dysfunction: Lactic acid of 2.3, trended Acute respiratory failure; patient with hypercapnia; with ABG PCO2 of 82.3 and pH of 7.16 Creatinine more than 2 or urine output less than 0.5 mL/kg/h for 2 hours ET tube placed in trach stoma and placed on ventilator emergency department, continue. Admit intensive care unit. Bottom Buffer consult. Blood culture x2 ordered in ED, follow. Legionella urine antigen and strep pneumonia urine antigen Albuterol as needed. Impression of chest x-ray: Question COPD. There is chronic interstitial changes versus acute interstitial pneumonia the lung bases. Chest x-ray was visualized and independently interpreted and I agree with radiologist interpretation Hyponatremia Sodium of 129; chronic. Trend BMP. Gentle IV hydration. Chronic pain Continuous Home oxycodone ordered. PRN morphine IV ordered History of Laryngeal cancer Worsening Miscellaneous: Patient on Carbamazepine. He denies history of seizures. Hold while on vent. Hold other home po meds. Change home decadron po to IV. Charges/Coding Visit Charges Inpatient E&M: 87135 Init Hosp L3
[2022-07-11 19:49] LABS: CPK Total, Creatine Kinase 27 U/L (39-308); Triglycerides 82 mg/dL
[2022-07-11 20:23] LABS: Reflex Lactate? Y
--- NOTE | 2022-07-11 21:28 | SEPSISATNOTE ---
Sepsis Attestation Sepsis Alert: Yes Sepsis Attestation: Agree w/Sepsis Date exam was performed: 07/11/22 Time exam was performed: 21:29 Possible Source of Sepsis: Pulmonary Sepsis Organ Dysfunction Criteria Present: SBP < 90 mmHg or MAP < 65 mmHg and Acute Respiratory Failure (New need for BiPAP/CPAP or MV) Fluid Resuscitation Fluid resuscitation indicated?: Yes Fluid Resuscitation ordered: 30 ml/kg fluid bolus ordered Sepsis Note Date exam was performed: 07/11/22 Time exam was performed: 19:45 Sepsis Attestation: Sepsis re-evaluation was performed
--- NOTE | 2022-07-11 21:30 | NURSING ---
Pt became hypotensive and drowsy, BP 59/35. Propofol paused, pt placed in trendelenberg position, normal saline running wide open. Dr. Dyer notified. Order received to give 2L normal saline bolus.
[2022-07-11] MEDS: Morphine 2 MG/ML Syringe IV (22:26)
[2022-07-11] MEDS: 0.9% Saline Lock 10 ML Syringe IV (22:27)
[2022-07-11] MEDS: dexAMETHasone 4 MG/ML Vial IV (22:28)
[2022-07-11] MEDS: Chlorhexidine 15 ML PO (22:33)
--- NOTE | 2022-07-11 22:44 | PCM.RX.CS ---
Consult Pharmacy has been consulted to manage selected antiobiotic: Vancomycin Type of Consult: New start Suspected Infection: Sepsis Prior Doses of Antibiotics Received/Current Regimen: Medications Vancomycin HCl (Vancomycin) 1,000 mg in 200 mls @ 200 mls/hr IV Q12H AUNG Discontinued Medications Vancomycin HCl 1,250 mg/ (Sodium Chloride) 275 mls @ 167 mls/hr IV X1 ONE Stop: 07/11/22 18:28 Last Admin: 07/11/22 20:53 Dose: Infused Labs: Sodium 129 mmol/L (136-145) L 07/11/22 16:05 Potassium 4.1 mmol/L (3.5-5.1) 07/11/22 16:05 Chloride 91 mmol/L (98-107) L 07/11/22 16:05 Carbon Dioxide 26.0 mmol/L (21.0-32.0) 07/11/22 16:05 Anion Gap 12 (5-15) 07/11/22 16:05 BUN 19 mg/dL (7-18) H 07/11/22 16:05 Creatinine 0.93 mg/dL (0.70-1.30) 07/11/22 16:05 Est GFR (MDRD) Af Amer 104 mL/min (>60) 07/11/22 16:05 Est GFR (MDRD) Non-Af 86 mL/min (>60) 07/11/22 16:05 BUN/Creatinine Ratio 20.5 RATIO (10-20) H 07/11/22 16:05 Glucose 251 mg/dL (74-106) H 07/11/22 16:05 Weight used for dosin.1 kg Estimated Creatinine Clearance: 75 Goal Trough: 15-20 mcg/mL Pharmacy Plan for Drug Dosing: Pharmacy Service will continue to monitor and adjust dosing as required. Follow-Up Labs: Trough Vancomycin Labs to be done on [date and time ordered]: 07/13/22 @8590
[2022-07-11 22:50] LABS: Lactic Acid 1.6 mmol/L (0.4-1.9)
[2022-07-11 23:42] LABS: Lactic Acid 2.3 mmol/L (0.4-1.9)
[2022-07-11] MEDS: 0.9% Normal Saline 1,000 ML 75 ML IV (23:50)
[2022-07-12] VITALS (38 sets, daily range): BP systolic 87–207; BP diastolic 46–123; PULSE 81–137; RESP 11–24; TEMP 36.9–37.7; O2SAT 93–100
[2022-07-12] MEDS: Morphine 2 MG/ML Syringe IV ×3 (01:32→08:26)
[2022-07-12 04:22] LABS: Absolute Lymphocyte Count 0.97 X10^3/uL (0.83-4.51); Absolute Neutrophil Count 30.3 X10^3/uL (2.0-7.7); Basophil# 0.05 X10^3/uL; Basophil% 0.2 % (0-1); Hematocrit 28.7 % (40-54); Hemoglobin 9.7 g/dL (13.0-16.5); Lymphocyte # 0.97 X10^3/ul (0.83-4.51); Mean Corp Hgb Conc 33.8 g/dL (32-36); Mean Corpuscular Hgb 33.7 pg (27.0-32.0); Mean Corpuscular Volume 99.7 fL (80-94); Mean Platelet Vol. 8.8 fl (6.2-12.0); Monocyte% 2.8 % (0-10); NRBC Flagged by Analyzer 0 % (0-5); Neutrophil # 30.26 X10^3/uL (2.7-7.7); Neutrophil % 93.3 % (47-70); POSITIVE COUNT YES; POSITIVE DIFFERENTIAL YES; Platelet Count 358 K/mm3 (150-450); RBC Distribution Width CV 12.3 % (11.6-14.6); RBC Distribution Width SD 44.9 fl (35.1-43.9); Red Blood Count 2.88 M/mm3 (4.6-6.2); White Blood Count 32.4 K/mm3 (4.4-11.0)
[2022-07-12 04:27] LABS: Differential Indicated SCAN CRITERIA MET
[2022-07-12] MEDS: 0.9% Saline Lock 10 ML Syringe IV ×3 (04:36→19:32)
[2022-07-12 04:38] LABS: Anion Gap 9 (5-15); BUN 10 mg/dL (7-18); BUN/Creat Ratio 19.6 RATIO (10-20); Calcium,Total 8.1 mg/dL (8.5-10.1); Chloride 102 mmol/L (98-107); Creatinine, Serum 0.51 mg/dL (0.70-1.30); EST Glomerular Filtration Rate 172 mL/min (>60); Est Glom Filt Rate - Afr Amer 208 mL/min (>60); Estimated Creatinine Clearance 74.01 ml/min; Glucose 132 mg/dL (74-106); Magnesium 1.6 mg/dL (1.6-2.6); Sodium Level 135 mmol/L (136-145)
[2022-07-12 04:42] LABS: Phosphorus 3.1 mg/dL (2.5-4.9)
[2022-07-12 05:29] LABS: Anisocytosis 1+
[2022-07-12 05:31] LABS: Macrocytosis 1+
[2022-07-12] MEDS: Vancomycin IV 1,000 MG/200 ML BAG 200 MG IV ×2 (06:31→17:13)
[2022-07-12] MEDS: Ipratropium/Albuterol Sulfate 3 ML AMPUL.NEB INHALATION ×3 (06:54→19:15)
--- NOTE | 2022-07-12 07:17 | PN.HOSP_ITS ---
Reason for Visit Reason for Visit: Diagnoses Sepsis, unspecified organism (07/11/22) Pneumonia, unspecified organism (07/11/22) Respiratory failure, unspecified with hypercapnia (07/11/22) Subjective Subjective Mr. Sheriff is a 66-year-old male who presented with altered mental status, and dyspnea. He has a history of previous laryngectomy for laryngeal cancer and has a chronic stoma. Evidently, he typically communicates by writing and the pa tient is alert and oriented at baseline however he became acutely ill approximate hour prior to presentation at the residential and they suction about 600 cc of saliva out of his tracheostomy site. He has no chronic tracheostomy tube. History was very limited as the patient was not able to participate. He was pancultured that he had marked white count elevation greater than 20 and was placed on IV antibiotics with vancomycin and Zosyn. Cultures were obtained prior to antibiotic initiation. Initially an ET tube was placed on his stoma but this has since been transition to a Shiley trach tube and he is on mechanical ventilation at this time. He has not required any pressors. He does meet criteria for sepsis with acute hypoxic and hypercapnic respiratory failure with his initial ABG showing a pH of 7.23, PCO2 of 65.3 and PO2 of 113 on 10 L trach mask, mental status change, lactic acidosis, and significant leukocytosis. He was admitted to the ICU. I am seeing him in follow-up on hospital day 2. Patient was be able to be taken off the ventilator this morning. He is responsive and appropriately interactive. White count has trended up to greater than 30,000 however all cultures are still pending. Patient indicated he was tired but had no specific complaints. Objective Data Objective Data Vital Signs: Vital Signs Temp Pulse Resp BP Pulse Ox O2 Del Method O2 Flow Rate 99.8 F H 104 H 13 141/71 H 99 Mechanical Ventilator 10 07/12/22 06:00 07/12/22 06:54 07/12/22 06:54 07/12/22 06:00 07/12/22 06:54 07/12/22 06:00 07/11/22 16:11 FiO2 30 07/12/22 06:00 Oxygen Flow Rate (L/min) 10 Oxygen Delivery Method Mechanical Ventilator Weight: 76.7 kg Body Mass Index (BMI) 23.7 Intake & Output: Intake and Output for Last 24 Hours 07/10/22 07/11/22 07/12/22 23:59 23:59 23:59 Intake Total 4226.41 / 4226.41 50 / 50 Output Total 1650 / 1650 Balance 4226.41 / 3226.41 -1600 / -1600 Lab / Micro Data Result Diagrams: 07/12/22 04:10 07/12/22 04:10 Labs: Laboratory Results - last 24 hr 07/11/22 16:05: WBC 23.7 H, RBC 3.70 L, Hgb 12.3 L, Hct 37.9 L, MCV 102.4 H, MCH 33.2 H, MCHC 32.5, RDW Std Deviation 46.5 H, RDW Coeff of Judd 12.3, Plt Count 547 H, MPV 9.4, Immature Gran % (Auto) 1.400 H, Neut % (Auto) 66.8, Lymph % (Auto) 26.1, [place] % (Auto) 4.4, Eos % (Auto) 0.8, Baso % (Auto) 0.5, Absolute Neuts (auto) 15.8 H, Absolute Lymphs (auto) 6.18 H, Nucleated RBC % 0, Differential Comment SCANNED 07/11/22 16:05: PT 14.3, INR 1.1, APTT 32.0 07/11/22 16:05: Sodium 129 L, Potassium 4.1, Chloride 91 L, Carbon Dioxide 26.0, Anion Gap 12, BUN 19 H, Creatinine 0.93, Estim Creat Clear Calc 74.57, Est GFR (MDRD) Af Amer 104, Est GFR (MDRD) Non-Af 86, BUN/Creatinine Ratio 20.5 H, Glucose 251 H, Calcium 9.6, Total Bilirubin 0.30, AST 17, ALT 24, Alkaline Phosphatase 113, Total Protein 9.3 H, Albumin 3.8, Globulin 5.5 H, Albumin/Globulin Ratio 0.7 L 07/11/22 16:05: Lactic Acid 2.3 H* 07/11/22 16:05: Total Creatine Kinase 27 L, Triglycerides 82 07/11/22 16:38: Urine Color Yellow, Urine Clarity Clear, Urine pH 6.0, Ur Specific [place] 1.015, Urine Protein 30 H, Urine Glucose (UA) Normal, Urine Ketones Negative, Urine Occult Blood Negative, Urine Nitrite Negative, Urine Bilirubin Negative, Urine Urobilinogen Normal, Ur Leukocyte Esterase Negative, Urine RBC 0-5 SEEN, Urine WBC 0-5 SEEN, Ur Squamous Epith Cells 0 SEEN, Urine Bacteria 0 SEEN, Urine Mucus 0 SEEN 07/11/22 17:37: Ethyl Alcohol < 3.0 07/11/22 22:00: Lactic Acid 1.6 07/12/22 04:10: WBC 32.4 H*, RBC 2.88 L, Hgb 9.7 L, Hct 28.7 L, MCV 99.7 H, MCH 33.7 H, MCHC 33.8, RDW Std Deviation 44.9 H, RDW Coeff of Judd 12.3, Plt Count 358, MPV 8.8, Immature Gran % (Auto) 0.700, Neut % (Auto) 93.3 H, Lymph % (Auto) 3.0 L, [place] % (Auto) 2.8, Eos % (Auto) 0.0, Baso % (Auto) 0.2, Absolute Neuts (auto) 30.3 H, Absolute Lymphs (auto) 0.97, Nucleated RBC % 0, Diff Path Review October, Anisocytosis 1+, Macrocytosis 1+ 07/12/22 04:10: Sodium 135 L, Potassium 4.0, Chloride 102, Carbon Dioxide 24.0, Anion Gap 9, BUN 10, Creatinine 0.51 L, Estim Creat Clear Calc 74.01, Est GFR (MDRD) Af Amer 208, Est GFR (MDRD) Non-Af 172, BUN/Creatinine Ratio 19.6, Glucose 132 H, Calcium 8.1 L, Magnesium 1.6 07/12/22 04:10: Phosphorus 3.1 Micro: Microbiology 07/11/22 22:00 Urine Catheter - Peterson Legionella Antigen - Final 07/11/22 22:00 Urine Catheter - [place] Streptococcus pneumoniae Antigen (M - Final ABG Data ABG results: ABG 07/11/22 07/11/22 16:46 18:09 Specimen Type ART ART Sample Site R Radial pH 7.16 L* 7.23 L Bicarbonate Actual 29.1 H 27.6 H Total CO2 32 30 Base Excess 0 0 O2 Saturation 91 L 97 O2 % 40 ABG pCO2 82.3 H* 65.3 H ABG pO2 81 113 H Radhames Test Positive Respiration Rate 14 O2 Delivery Device T Collar Adult Vent Liter Flow 10.0 Vent Mode AC Tidal Volume 400 POC PEEP 5 Crit Call To/Read Back Yes Blood Gas Notified Whom javier Radiography Diagnostic Testing: Radiology Impression Chest X-Ray 07/11/22 16:35 IMPRESSION: Question COPD. There is chronic interstitial changes versus acute interstitial pneumonia the lung bases. Electronically Signed: Marcell YumiDO at 16:47 EST Reading Location ID and State: [facility] / [employer] Tel [phone], Service support , Chest X-Ray 07/11/22 17:10 IMPRESSION: Endotracheal tube with its tip in the right mainstem bronchus. See recommendation above. Electronically Signed: Marcell YumiDO at 17:34 EST Reading Location ID and State: [facility] [facility] / [employer] Tel [phone], Service support , Chest X-Ray 07/11/22 17:10 IMPRESSION: Satisfactory readjustment of the endotracheal tube position when compared with study of 5 minutes earlier. Electronically Signed: Marcell YumiDO at 17:35 EST Reading Location ID and State: [employer] / [employer] Tel [phone], Service support , Physical Exam Const alert, oriented x3 and no apparent distress Constitutional Narrative: Upper middle-aged white male sitting up in bed, resting comfortably, awakens and appropriately interactive, unable to vocalize as he is status post laryngectomy but follows all commands and answers questions by shaking his head appropriately HEENT head/scalp atraumatic and moist oral mucous membranes HEENT Narrative: Tracheostomy tube in place, trachea midline, no thyroid enlargement Head and Scalp: normocephalic Resp normal respiratory effort, no retractions and no use of accessory muscles Resp Narrative: Diffusely diminished, rhonchi at bilateral bases, patient with comfortable breathing at this time on trach mask Auscultation: rhonchi; Negative for crackles or wheezes Cardio regular rate, regular rhythm, S1 normal heart sound, S2 normal heart sound, no murmurs, no rub, no gallops and no clicks GI normal to inspection, nondistended, normoactive bowel sounds, soft to palpation and non-tender Extremity no clubbing, cyanosis or edema Extremity Narrative: 2+ pedal pulses Neuro oriented x3, moves all extremities and no focal motor deficits Neuro Narrative: Patient unable to talk secondary to status post laryngectomy communicates by writing things down Psych Psych Narrative: Affect is flat and mood seems depressed Mood & Affect: depressed Assessment & Plan Assessment/Plan (1) Acute respiratory failure with hypoxia and hypercapnia: (2) Sepsis: (3) Metabolic encephalopathy: (4) Leukocytosis: (5) Lactic acidosis: PLAN: Plan Sepsis secondary to unknown source -Patient meets criteria for sepsis with acute respiratory failure, metabolic encephalopathy, leukocytosis, and lactic acidosis -Patient has not required any pressors -Patient was not hypotensive so it does not appear that 30 cc/kg body weight fluid boluses were given -Continue home Decadron but monitor closely for any hypotension as he may develop adrenal insufficiency because of his chronic steroid use and acute illness -Continue IV fluids at 75 cc/h for now -Blood, urine, sputum cultures are all pending -Continue vancomycin and Zosyn -CCM is following Acute hypoxic and hypercapnic respiratory failure -Secondary to the above -No infiltrate noticed on initial checks x-ray -Strep pneumo and Legionella antigens are pending -Sputum culture is pending -Continue broad-spectrum antibiotics -Patient required mechanical ventilation overnight but has since been transitioned to trach mask and seems to be doing well Leukocytosis -Related to the above -Broad-spectrum antibiotics -Await culture results -Trend CBC Lactic acidosis -2.3 on admission -Resolved with treatment Metabolic encephalopathy -Like related to acute illness along with hypercapnia -Appears to have resolved -Continue to monitor GERD -Continue PPI with Protonix IV push daily COPD -Patient is not on any chronic inhalers -Would recommend outpatient pulmonary follow-up if he does not have any establishment with anybody else -As needed aerosols History of malignant neoplasm of the larynx -Patient's status post laryngectomy -Patient is on chronic steroids Decadron 2 mg daily -I suspect this is related to this but I am not exactly clear on why he is on chronic Decadron -We will need further investigation once patient is extubated Major depressive disorder/anxiety -Patient is on carbamazepine and gabapentin as well as mirtazapine -Restart home Xanax -I am unclear if this is all for his major depression -We will need to clarify Chronic pain -Patient is on oxycodone 10 mg as needed at home -We will reinitiate once patient extubated Insomnia -Hold zolpidem for now DVT prophylaxis -Enoxaparin 40 mg daily CODE STATUS -Full code as verified on admission paperwork from nursing facility Charges/Coding Visit Charges Inpatient E&M: 90367 Subs Hosp L2
--- NOTE | 2022-07-12 07:27 | CON.PCM.CC_ITS ---
Assessment & Plan Assessment/Plan (1) Acute respiratory failure with hypoxia and hypercapnia: PLAN: Plan RECOMMENDATIONS: 1. Wean FiO2 to maintain oxygen saturations at or above 90%. 2. Continue empiric antimicrobials. 3. Continue scheduled bronchodilators. 4. Continue Decadron along with Xanax and as needed oxycodone per home regimen. 5. Dietary advancement as tolerated. 6. Continue appropriate DVT prophylaxis. IMPRESSIONS: 1. Acute combined respiratory failure The patient has a reported history of COPD of unknown severity and presented to the hospital with altered mentation in the setting of hypercapnia. Although no focal infiltrate was identified on chest imaging, the patient does have significant mucopurulent secretions, raising the possibility of tracheobronchitis. In order to provide ventilatory support, a cuffed Shiley trach was introduced through his stoma. The patient was placed on assist control mode of mechanical ventilation with subsequent improvement in his acid- base status. The patient has been maintained on antimicrobials along with scheduled bronchodilators. Will attempt this morning to transition him from ventilatory support to trach collar supplemental oxygen, with a goal to maintain saturations at or above 90%. The patient's diet can likely be advanced at this time. 2. 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 The patient is active with [facility] in [place]. 3. Sepsis The patient presented with sepsis due to probable pulmonary source of infection with acute sepsis related organ dysfunction as evidenced by lactic acidemia, metabolic encephalopathy and need for invasive mechanical ventilatory support. Plan to continue supportive measures including broad-spectrum antimicrobials, pending culture results. 4. Chronic pain syndrome/depression/anxiety Complicates care, management, recovery and prognosis. Okay to continue home medications as indicated. TIME: 37 minutes of critical care time, independent of procedures, was spent address ing the patient's acute combined respiratory failure, sepsis, review of all data and collaboration with the care team. HPI Consult Data Date of Consult: 07/13/22 HPI Narrative Reason for Consultation: Respiratory failure HPI Narrative: The patient is a 66-year-old male, with a history as outlined below, who presented to the emergency department via EMS from his [facility] facility on July 11 with altered mentation, hypoxemia and shortness of breath in the setting of increased pulmonary secretion output. The patient has a known history of supraglottic squamous cell carcinoma diagnosed in 2013 status post total l aryngectomy and bilateral neck dissection followed by adjuvant radiation. The patient then was diagnosed in April 2022 with recurrence of his squamous cell carcinoma of the oropharynx with extension to the soft palate, right lateral pharyngeal wall and base of the tongue. The patient was not felt to be a candidate for any further surgical intervention by ENT. He did receive stereotactic radiation therapy. According to oncology documentation, there were tentative plans for the patient to be started on pembrolizumab starting in June 2022. The patient is currently active with [facility] care in [place]. He was last seen in mid June 2022. The patient is under treatment for cancer related pain with gabapentin, oxycodone and Decadron. The patient's CODE STATUS was last documented to be DNR CCA. The patient also has a documented medical history of COPD, generalized anxiety disorder, depression, and GERD. Recent outpatient CT imaging of the chest completed in mid June 2022 demonstrated severe bilateral emphysematous changes along with a right upper lobe masslike density measuring 3.6 x 2.4 cm. On presentation to the emergency department, the patient was noted to be afebrile but was tachycardic, tachypneic and hypertensive. Initial laboratory evaluation demonstrated elevated white blood cell count to 24,000. Platelet count was elevated at 547,000. Chemistry profile was notable for a sodium of 129, chloride of 91, and creatinine of 0.93. Lactate was elevated at 2.3. The patient's initial arterial blood gas demonstrated a pH of 7.16 with a PCO2 of 82 and PO2 of 81. An endotracheal tube was subsequently placed in the patient's stoma. The endotracheal tube eventually had to be retracted, given its right mainstem location. For the sake of ease, I did recommend that the endotracheal tube be removed completely and a cuffed Shiley trach placed instead. The patient was initiated on supplemental IV fluids and broad-spectrum antimicrobials. He was admitted to the medical intensive care unit for further management. [facility] Medical History (Updated 07/12/22 @ 07:[address] Karol Mack DO) Anxiety Blindness of left eye COPD (chronic obstructive pulmonary disease) GERD (gastroesophageal reflux disease) Major depressive disorder Malignant neoplasm of larynx Home Medications alprazolam 0.5 mg tablet 0.5 mg PO BID ANXIETY 07/11/22 [History Last Taken 07/11/22] carbamazepine 300 mg capsule,extended release [id number] 300 mg PO BID . 07/11/22 [History Last Taken 07/11/22] dexamethasone 2 mg tablet 2 mg PO DAILY . 07/11/22 [History Last Taken 07/11/22] docusate sodium 100 mg capsule (Colace) 100 mg PO BID CONSTIPATION 07/11/22 [History Last Taken 07/11/22] gabapentin 400 mg capsule 400 mg PO TID PAIN 07/11/22 [History Last Taken 07/11/22] guaifenesin 100 mg/5 mL oral liquid 200 mg PO Q4H PRN Cough 07/11/22 [History Last Taken Unknown] melatonin 5 mg tablet 5 mg PO QHS SLEEP 07/11/22 [History Last Taken 07/10/22] mirtazapine 45 mg tablet 45 mg PO DAILY . 07/11/22 [History Last Taken 07/10/22] oxycodone 10 mg tablet 10 mg PO Q4H PRN PRN Pain 07/11/22 [History Last Taken 07/11/22] pantoprazole 40 mg tablet,delayed release 40 mg PO DAILY GERD 07/11/22 [History Last Taken 07/11/22] zolpidem 5 mg tablet 5 mg PO DAILY SLEEP 07/11/22 [History Last Taken 07/10/22] Allergy/AdvReac Type Severity Reaction Status Date / Time No Known Allergies Allergy Verified 07/11/22 16:06 Family History Other Cancer Surgical History History of laryngectomy Social History Smoking Status: Former smoker ROS Review of Systems ROS Unobtainable: due to endotracheal tube Physical Exam Const alert and no apparent distress General Appearance: cooperative and patient mechanically ventilated HEENT normocephalic and head/scalp atraumatic HEENT Narrative: Cuffed Shiley trach in place. Eyes PERRL, EOMs intact bilaterally and conjunctivae normal Neck supple General: trachea midline Chest inspection of chest normal Resp normal respiratory effort Auscultation: diminished lung sounds; Negative for rales, rhonchi or wheezes Cardio S1 normal heart sound and S2 normal heart sound Rate: tachycardic GI normal to inspection, nondistended, normoactive bowel sounds Extremity no clubbing, cyanosis or edema Skin no rashes or lesions noted Neuro CN's II-XII intact bilaterally and no focal motor deficits Psych Mood & Affect: anxious Lab / Micro Data Result Diagrams: 07/13/22 05:40 07/13/22 05:40 Labs: Laboratory Results - last 24 hr 07/11/22 16:05: WBC 23.7 H, RBC 3.70 L, Hgb 12.3 L, Hct 37.9 L, MCV 102.4 H, MCH 33.2 H, MCHC 32.5, RDW Std Deviation 46.5 H, RDW Coeff of Judd 12.3, Plt Count 547 H, MPV 9.4, Immature Gran % (Auto) 1.400 H, Neut % (Auto) 66.8, Lymph % (Auto) 26.1, [place] % (Auto) 4.4, Eos % (Auto) 0.8, Baso % (Auto) 0.5, Absolute Neuts (auto) 15.8 H, Absolute Lymphs (auto) 6.18 H, Nucleated RBC % 0, Differential Comment SCANNED 07/11/22 16:05: PT 14.3, INR 1.1, APTT 32.0 07/11/22 16:05: Sodium 129 L, Potassium 4.1, Chloride 91 L, Carbon Dioxide 26.0, Anion Gap 12, BUN 19 H, Creatinine 0.93, Estim Creat Clear Calc 74.57, Est GFR (MDRD) Af Amer 104, Est GFR (MDRD) Non-Af 86, BUN/Creatinine Ratio 20.5 H, Glucose 251 H, Calcium 9.6, Total Bilirubin 0.30, AST 17, ALT 24, Alkaline Phosphatase 113, Total Protein 9.3 H, Albumin 3.8, Globulin 5.5 H, Albumin/Globulin Ratio 0.7 L 07/11/22 16:05: Lactic Acid 2.3 H* 07/11/22 16:05: Total Creatine Kinase 27 L, Triglycerides 82 07/11/22 16:38: Urine Color Yellow, Urine Clarity Clear, Urine pH 6.0, Ur Specific [place] 1.015, Urine Protein 30 H, Urine Glucose (UA) Normal, Urine Ketones Negative, Urine Occult Blood Negative, Urine Nitrite Negative, Urine Bilirubin Negative, Urine Urobilinogen Normal, Ur Leukocyte Esterase Negative, Urine RBC 0-5 SEEN, Urine WBC 0-5 SEEN, Ur Squamous Epith Cells 0 SEEN, Urine Bacteria 0 SEEN, Urine Mucus 0 SEEN 07/11/22 17:37: Ethyl Alcohol < 3.0 07/11/22 22:00: Lactic Acid 1.6 07/12/22 04:10: WBC 32.4 H*, RBC 2.88 L, Hgb 9.7 L, Hct 28.7 L, MCV 99.7 H, MCH 33.7 H, MCHC 33.8, RDW Std Deviation 44.9 H, RDW Coeff of Judd 12.3, Plt Count 358, MPV 8.8, Immature Gran % (Auto) 0.700, Neut % (Auto) 93.3 H, Lymph % (Auto) 3.0 L, [place] % (Auto) 2.8, Eos % (Auto) 0.0, Baso % (Auto) 0.2, Absolute Neuts (auto) 30.3 H, Absolute Lymphs (auto) 0.97, Nucleated RBC % 0, Diff Path Review May foll, Anisocytosis 1+, Macrocytosis 1+ 07/12/22 04:10: Sodium 135 L, Potassium 4.0, Chloride 102, Carbon Dioxide 24.0, Anion Gap 9, BUN 10, Creatinine 0.51 L, Estim Creat Clear Calc 74.01, Est GFR (MDRD) Af Amer 208, Est GFR (MDRD) Non-Af 172, BUN/Creatinine Ratio 19.6, Glucose 132 H, Calcium 8.1 L, Magnesium 1.6 07/12/22 04:10: Phosphorus 3.1 Micro: Microbiology 07/11/22 22:00 Urine Catheter - Peterson Legionella Antigen - Final 07/11/22 22:00 Urine Catheter - Peterson Streptococcus pneumoniae Antigen (M - Final ABG Data ABG results: ABG 07/11/22 07/11/22 16:46 18:09 Specimen Type ART ART Sample Site R Radial pH 7.16 L* 7.23 L Bicarbonate Actual 29.1 H 27.6 H Total CO2 32 30 Base Excess 0 0 O2 Saturation 91 L 97 O2 % 40 ABG pCO2 82.3 H* 65.3 H ABG pO2 81 113 H Radhames Test Positive Respiration Rate 14 O2 Delivery Device T Collar Adult Vent Liter Flow 10.0 Vent Mode AC Tidal Volume 400 POC PEEP 5 Crit Call To/Read Back Yes Blood Gas Notified Whom javier Radiology Impression Chest X-Ray 07/11/22 16:35 IMPRESSION: Question COPD. There is chronic interstitial changes versus acute interstitial pneumonia the lung bases. Electronically Signed: Marcell Eason DO at 16:47 EST Reading Location ID and State: [email or web address] / [employer] Tel [phone], Service support , Chest X-Ray 07/11/22 17:10 IMPRESSION: Endotracheal tube with its tip in the right mainstem bronchus. See recommendation above. Electronically Signed: Marcell Eason DO at 17:34 EST Reading Location ID and State: [email or web address] / [facility] Tel [phone], Service support , Chest X-Ray 07/11/22 17:10 IMPRESSION: Satisfactory readjustment of the endotracheal tube position when compared with study of 5 minutes earlier. Electronically Signed: Marcell Eason DO at 17:35 EST Reading Location ID and State: [email or web address] / [facility] Tel [phone], Service support , Charges/Coding Procedures Hospitalists Procedures: [id number] Critial Care 1st Hr
[2022-07-12] MEDS: Chlorhexidine 15 ML PO (07:56)
[2022-07-12] MEDS: Enoxaparin 40 MG/0.4 ML Syringe SC (07:56)
[2022-07-12] MEDS: dexAMETHasone 4 MG/ML Vial IV ×2 (07:56→21:43)
[2022-07-12] MEDS: LEVOTHYROXINE SODIUM 100 MCG VIAL 50 MCG IV (07:57)
--- NOTE | 2022-07-12 08:00 | RAD_ITS ---
STUDY: X-RAY CHEST REASON FOR EXAM: Male, 66 years old. Respiratory Failure TECHNIQUE: Single AP portable view of the chest. COMPARISON: Comparison is made with prior study dated 07/11/2022. FINDINGS: A tracheostomy tube is seen. The tip is at 5.6 cm proximal to the aurora. EKG electrodes are seen. Hyperinflation. Stable patchy infiltrate in the lateral aspect of the right upper lobe. This may represent a pulmonary nodule. Since prior study, there has been an increase in the interstitial markings with areas of confluence in both lower lobes. This may represent bibasilar infiltrates superimposed on mild degree of CHF. Blunting of the left costophrenic angle. Normal size heart. Normal mediastinum and deirdre. Normal visualized pulmonary arteries. There is atherosclerotic calcification of the aortic arch with tortuosity. Normal visualized thoracic spine. Normal visualized ribs, clavicles, and shoulders. There is no demonstrated abnormality of the visualized soft tissue structures of the upper abdomen. RAD/Chest 1 View (Portable) IMPRESSION: Progressive increased markings at the lung bases worse at the left lung base suggestive of a superimposed bibasilar infiltrates on mild degree of CHF. Stable peripheral nodular density in the lateral aspect of the right upper lobe. Electronically Signed: Richard Rowe MD at 9:43 EST ,
--- NOTE | 2022-07-12 08:25 | CPS ---
Patient taken off ventilator and placed on 30% Cool Aerosol per Dr. Olvera. 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
[2022-07-12] MEDS: LORazepam 2 MG/ML Syringe 1 MG IV (08:45)
[2022-07-12] MEDS: ALPRAZolam 0.5 MG Tablet PO ×2 (11:27→21:41)
--- NOTE | 2022-07-12 12:20 | NURSING ---
pt's watch given to sister, Nika West, to take home.
--- NOTE | 2022-07-12 12:25 | CASEMGMT ---
Social Work Pt is here from [facility]. As per pt, his POA is his sister Nika Kam([phone]). We do not have papers on file. SW called [facility] and asked them to fax them over if they have them. SW attempted to speak w/pt, he is not up for talking w/SW today. SW sent updates to [facility] via Pre[facility], will continue to follow. SW will check w/pt when he is up for talking w/SW to make sure he would like to return to [facility] at discharge. JOHNSON Hutchinson
[2022-07-12] MEDS: oxyCODONE 5 MG Tablet 10 MG PO ×3 (12:52→21:41)
[2022-07-12] MEDS: 0.9% Normal Saline 1,000 ML 75 ML IV (18:54)
[2022-07-12] MEDS: LORazepam 2 MG/ML Syringe 0.5 MG IV (19:32)
[2022-07-12] MEDS: Zolpidem Tartrate 5 MG Tablet PO (22:36)
[2022-07-12] MEDS: Mirtazapine 15 MG Tablet 45 MG PO (22:36)
[2022-07-13] VITALS (23 sets, daily range): BP systolic 96–199; BP diastolic 57–112; PULSE 80–119; RESP 10–20; TEMP 36.5–37.7; O2SAT 90–100
[2022-07-13] MEDS: oxyCODONE 5 MG Tablet 10 MG PO ×2 (03:32→08:04)
[2022-07-13] MEDS: hydrOXYzine 10 MG Tablet PO (05:21)
[2022-07-13 06:02] LABS: Absolute Lymphocyte Count 0.89 X10^3/uL (0.83-4.51); Absolute Neutrophil Count 24.5 X10^3/uL (2.0-7.7); Basophil# 0.04 X10^3/uL; Basophil% 0.2 % (0-1); Eosinophil# 0.01 X10^3/uL; Hematocrit 34.3 % (40-54); Hemoglobin 11.1 g/dL (13.0-16.5); Lymphocyte # 0.89 X10^3/ul (0.83-4.51); Lymphocyte % 3.3 % (19-41); Mean Corp Hgb Conc 32.4 g/dL (32-36); Mean Corpuscular Volume 105.2 fL (80-94); Monocyte# 0.97 X10^3/uL; Monocyte% 3.6 % (0-10); NRBC Flagged by Analyzer 0 % (0-5); Neutrophil # 24.52 X10^3/uL (2.7-7.7); Neutrophil % 92.3 % (47-70); POSITIVE DIFFERENTIAL YES; Platelet Count 365 K/mm3 (150-450); RBC Distribution Width CV 12.2 % (11.6-14.6); RBC Distribution Width SD 47.8 fl (35.1-43.9); Red Blood Count 3.26 M/mm3 (4.6-6.2); White Blood Count 26.6 K/mm3 (4.4-11.0)
[2022-07-13 06:11] LABS: Differential Indicated SCAN CRITERIA MET
[2022-07-13 06:35] LABS: ALB/GLOB Ratio 0.6 RATIO (0.9-2.4); AST(SGOT) 17 U/L (15-37); Alanine Aminotransfer ALT/SGPT 19 U/L (16-61); Alkaline Phosphatase 87 U/L (45-117); Anion Gap 7 (5-15); BUN 7 mg/dL (7-18); BUN/Creat Ratio 13.4 RATIO (10-20); Chloride 98 mmol/L (98-107); Creatinine, Serum 0.52 mg/dL (0.70-1.30); EST Glomerular Filtration Rate 167 mL/min (>60); Est Glom Filt Rate - Afr Amer 202 mL/min (>60); Estimated Creatinine Clearance 74.01 ml/min; Globulin 5.2 g/dL (2.2-4.2); Glucose 128 mg/dL (74-106); Magnesium 2.1 mg/dL (1.6-2.6); Phosphorus 3.1 mg/dL (2.5-4.9); Potassium 3.6 mmol/L (3.5-5.1); Protein, Total 8.2 g/dL (6.4-8.2); Sodium Level 134 mmol/L (136-145); T4 Free Direct 0.65 ng/dL (0.76-1.46)
[2022-07-13 06:41] LABS: Vancomycin, Trough Level 8.2 ug/mL (5.0-15.0)
[2022-07-13 07:05] LABS: Macrocytosis 1+
[2022-07-13] MEDS: Ipratropium/Albuterol Sulfate 3 ML AMPUL.NEB INHALATION ×3 (07:14→18:52)
--- NOTE | 2022-07-13 07:32 | PCM.PN.INT ---
Assessment & Plan Assessment/Plan (1) Acute respiratory failure with hypoxia and hypercapnia: PLAN: Plan RECOMMENDATIONS: 1. Continue to wean supplemental oxygen to maintain saturations at or above 90%. 2. Okay to remove Shiley trach. 3. Continue Zosyn. Okay to discontinue vancomycin. 4. Continue scheduled bronchodilators. 5. Continue Decadron along with Xanax and as needed oxycodone per home regimen. 6. Continue appropriate DVT prophylaxis. IMPRESSIONS: 1. Acute combined respiratory failure The patient has a reported history of COPD of unknown severity and presented to the hospital with altered mentation in the setting of hypercapnia. Although no focal infiltrate was identified on chest imaging, the patient does have significant mucopurulent secretions, raising the possibility of tracheobronchitis. In order to provide ventilatory support, a cuffed Shiley trach was introduced through his stoma. The patient was placed on assist control mode of mechanical ventilation with subsequent improvement in his acid-base status. The patient has been maintained on antimicrobials along with scheduled bronchodilators. Overall, the patient has clinically improved in the setting of the aforementioned interventions. Therefore, we will plan to remove his Shiley trach today. Supplemental oxygen, utilized, if needed, to maintain saturations at or above 90%. Given that the patient is currently growing gram-negative's from his sputum culture, will continue Zosyn and discontinue vancomycin. 2. 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 The patient is active with palliative care medicine in [place]. 3. Sepsis The patient presented with sepsis due to gram-negative tracheobronchitis/pneumonia with acute sepsis related organ dysfunction as evidenced by lactic acidemia, metabolic encephalopathy and need for invasive mechanical ventilatory support. The patient remains hemodynamically stable. Plan to continue antimicrobials to address underlying gram-negative infection. 4. Chronic pain syndrome/depression/anxiety Complicates care, management, recovery and prognosis. Okay to continue home medications as indicated. This note was generated with [employer] dictation software. It may contain incorrect words, spelling, and punctuation that were not noted in checking the note before signing. Subjective Subjective The patient was seen and examined at the bedside this morning. Events from the last 24 hours have been reviewed. The patient is currently afebrile, hemodynamically stable and maintaining appropriate oxygen saturations on a 30% trach collar. The patient continues to have copious secretions. He does report ongoing musculoskeletal pain and anxiety. White count remains elevated at 26,000. Objective Data Objective Data The patient's most recent lab work, culture data and imaging studies have all been personally reviewed. Blood, urine and sputum cultures are pending. Vital Signs: Vital Signs Temp Pulse Resp BP Pulse Ox O2 Del Method O2 Flow Rate 98 F 108 H 18 164/94 H 98 Trach Collar 8 07/13/22 06:00 07/13/22 07:15 07/13/22 07:15 07/13/22 06:00 07/13/22 06:00 07/13/22 07:15 07/12/22 08:00 FiO2 30 07/13/22 06:00 Oxygen Flow Rate (L/min) 8 Oxygen Delivery Method Trach Collar Weight: 164 lb 3.91 oz Body Mass Index (BMI) 23.7 Intake & Output: Intake and Output for Last 24 Hours 07/11/22 07/12/22 07/13/22 23:59 23:59 23:59 Intake Total 4226.41 / 4226.41 1940 / 1940 50 / 50 Output Total 3850 / 4400 1450 / 1450 Balance 4226.41 / 3226.41 -1910 / -2460 -1400 / -1400 Lab / Micro Data Attestation: I reviewed the patient's lab results. Result Diagrams: 07/13/22 05:40 07/13/22 05:40 Labs: Laboratory Results - last 24 hr 07/13/22 05:40: Vancomycin Trough 8.2 07/13/22 05:40: WBC 26.6 H, RBC 3.26 L, Hgb 11.1 L, Hct 34.3 L, MCV 105.2 H D, MCH 34.0 H, MCHC 32.4, RDW Std Deviation 47.8 H, RDW Coeff of Judd 12.2, Plt Count 365, MPV 9.0, Immature Gran % (Auto) 0.600, Neut % (Auto) 92.3 H, Lymph % (Auto) 3.3 L, [place] % (Auto) 3.6, Eos % (Auto) 0.0, Baso % (Auto) 0.2, Absolute Neuts (auto) 24.5 H, Absolute Lymphs (auto) 0.89, Nucleated RBC % 0, Macrocytosis 1+ 07/13/22 05:40: Sodium 134 L, Potassium 3.6, Chloride 98, Carbon Dioxide 29.0, Anion Gap 7, BUN 7, Creatinine 0.52 L, Estim Creat Clear Calc 74.01, Est GFR (MDRD) Af Amer 202, Est GFR (MDRD) Non-Af 167, BUN/Creatinine Ratio 13.4, Glucose 128 H, Calcium 9.0, Phosphorus 3.1, Magnesium 2.1, Total Bilirubin 0.30, AST 17, ALT 19, Alkaline Phosphatase 87, Total Protein 8.2, Albumin 3.0 L, Globulin 5.2 H, Albumin/Globulin Ratio 0.6 L, Free T4 0.65 L Micro: Microbiology 07/12/22 00:30 Sputum, Expectorated/Coughed Gram Stain - Final 07/11/22 19:22 Sputum, Induced/Lukens Gram Stain - Final 07/11/22 16:38 Urine Catheter - Catheter Urine Culture - Preliminary Culture exhibits no growth. 07/11/22 22:00 Urine Catheter - Peterson Legionella Antigen - Final 07/11/22 22:00 Urine Catheter - Peterson Streptococcus pneumoniae Antigen (M - Final Radiography Diagnostic Testing: Radiology Impression Chest X-Ray 07/12/22 08:00 IMPRESSION: Progressive increased markings at the lung bases worse at the left lung base suggestive of a superimposed bibasilar infiltrates on mild degree of CHF. Stable peripheral nodular density in the lateral aspect of the right upper lobe. Electronically Signed: Richard Rowe MD at 9:43 EST , Physical Exam Const alert and no apparent distress General Appearance: cooperative HEENT normocephalic and head/scalp atraumatic HEENT Narrative: Stable Shiley trach in place Eyes PERRL, EOMs intact bilaterally and conjunctivae normal Neck supple General: trachea midline Chest inspection of chest normal Resp normal respiratory effort Auscultation: rhonchi and diminished lung sounds; Negative for rales or wheezes Cardio S1 normal heart sound and S2 normal heart sound Rate: tachycardic GI normal to inspection, nondistended, normoactive bowel sounds Extremity no clubbing, cyanosis or edema Skin no rashes or lesions noted Neuro CN's II-XII intact bilaterally and no focal motor deficits Psych Mood & Affect: anxious Charges/Coding Visit Charges Inpatient E&M: 87386 Subs Hosp L3
--- NOTE | 2022-07-13 07:36 | PCM.RX.CS ---
Consult Pharmacy has been consulted to manage selected antiobiotic: Vancomycin Type of Consult: Follow-up Suspected Infection: Sepsis Prior Doses of Antibiotics Received/Current Regimen: Presently on 1gm iv q12h. Labs: Sodium 134 mmol/L (136-145) L 07/13/22 05:40 Potassium 3.6 mmol/L (3.5-5.1) 07/13/22 05:40 Chloride 98 mmol/L (98-107) 07/13/22 05:40 Carbon Dioxide 29.0 mmol/L (21.0-32.0) 07/13/22 05:40 Anion Gap 7 (5-15) 07/13/22 05:40 BUN 7 mg/dL (7-18) 07/13/22 05:40 Creatinine 0.52 mg/dL (0.70-1.30) L 07/13/22 05:40 Est GFR (MDRD) Af Amer 202 mL/min (>60) 07/13/22 05:40 Est GFR (MDRD) Non-Af 167 mL/min (>60) 07/13/22 05:40 BUN/Creatinine Ratio 13.4 RATIO (10-20) 07/13/22 05:40 Glucose 128 mg/dL (74-106) H 07/13/22 05:40 Vancomycin Trough 8.2 ug/mL (5.0-15.0) 07/13/22 05:40 Microbiology: Microbiology 07/12/22 00:30 Sputum, Expectorated/Coughed Gram Stain - Final 07/11/22 19:22 Sputum, Induced/Lukens Gram Stain - Final 07/11/22 16:38 Urine Catheter - Catheter Urine Culture - Preliminary Culture exhibits no growth. 07/11/22 22:00 Urine Catheter - Peterson Legionella Antigen - Final 07/11/22 22:00 Urine Catheter - Peterson Streptococcus pneumoniae Antigen (M - Final Weight used for dosin.5 kg Estimated Creatinine Clearance: >120ml/min Goal Trough: 15-20 mcg/mL Pharmacy Plan for Drug Dosing: Trough today 8.2 and below desired range of 15-20 mcg/ml. Will increase dose to 1500mg iv q12h. New trough ordered for before 4th dose of new regimen. Pharmacy Service will continue to monitor and adjust dosing as required. Follow-Up Labs: Trough Vancomycin - 2.9.23 @1930 before 2000 dose
[2022-07-13] MEDS: LORazepam 2 MG/ML Syringe 0.5 MG IV (08:03)
[2022-07-13] MEDS: 0.9% Saline Lock 10 ML Syringe IV ×3 (08:05→21:54)
[2022-07-13] MEDS: 0.9% Normal Saline 1,000 ML 75 ML IV (08:24)
[2022-07-13] MEDS: Docusate Sodium 100 MG Capsule PO (10:22)
[2022-07-13] MEDS: Enoxaparin 40 MG/0.4 ML Syringe SC (10:23)
[2022-07-13] MEDS: dexAMETHasone 4 MG/ML Vial IV ×2 (10:23→21:57)
[2022-07-13] MEDS: Pantoprazole Sodium 40 MG Tablet PO (10:34)
[2022-07-13] MEDS: ALPRAZolam 0.5 MG Tablet PO (10:34)
[2022-07-13] MEDS: LEVOTHYROXINE SODIUM 100 MCG VIAL 50 MCG IV (10:35)
[2022-07-13] MEDS: Albuterol 2.5 MG/3 ML VIAL.NEB. INHALATION (10:59)
[2022-07-13] MEDS: Labetalol (Prefilled) 20 MG/4 ML 10 MG IV (11:10)
[2022-07-13] MEDS: HYDROmorphone 1 MG/ML Syringe IV ×2 (13:42→21:47)
--- NOTE | 2022-07-13 14:00 | NURSING ---
dr rdz in to talk with pt regarding need of transfer to higher level of care d/t aspiration and laryngeal prosthesis' not working. pt belligerant and yelling at and unable to reason with d/t anger and frustration. still waiting on pt's sister/poa to call back.
--- NOTE | 2022-07-13 15:36 | CASEMGMT ---
SW sent updates to [facility]. Sonali Araujo [employer]
--- NOTE | 2022-07-13 17:30 | DS.PCM_ITS ---
Providers Date of Admission: 07/11/22 Date of Discharge: 07/13/22 Primary Care Physician: Dr. Guillermo Pinto MD Consultations 07/11/22 20:42 Consult: Safety Teacher / Pulmonary Medicine Routine Consulting Provider: Pulmonary Medicine jackelyn [place] Reason for Consult: sepsis, critical care EMERGENT Consult: No Notified: Yes Date Notified: 07/12/22 Time Notified: 00:47 Method of Notification: Text 07/13/22 11:59 Consult: ENT Routine Consulting Provider: Juan Vázquez Reason for Consult: L fitting tracheoesophageal prostheses causing aspiration EMERGENT Consult: No Notified: Yes Date Notified: 07/13/22 Time Notified: 13:24 Method of Notification: Verbal Reason For Visit: SEPSIS Diagnosis Discharge Diagnosis (1) Acute respiratory failure with hypoxia and hypercapnia: Status: Acute Code(s): J96.01 - Acute respiratory failure with hypoxia; J96.02 - Acute respiratory failure with hypercapnia Medications at Discharge Home Medications alprazolam 0.5 mg tablet 0.5 mg PO BID ANXIETY 07/11/22 carbamazepine 300 mg capsule,extended release [id number] 300 mg PO BID . 07/11/22 dexamethasone 2 mg tablet 2 mg PO DAILY . 07/11/22 docusate sodium 100 mg capsule (Colace) 100 mg PO BID CONSTIPATION 07/11/22 gabapentin 400 mg capsule 400 mg PO TID PAIN 07/11/22 guaifenesin 100 mg/5 mL oral liquid 200 mg PO Q4H PRN Cough 07/11/22 melatonin 5 mg tablet 5 mg PO QHS SLEEP 07/11/22 mirtazapine 45 mg tablet 45 mg PO DAILY . 07/11/22 oxycodone 10 mg tablet 10 mg PO Q4H PRN PRN Pain 07/11/22 pantoprazole 40 mg tablet,delayed release 40 mg PO DAILY GERD 07/11/22 zolpidem 5 mg tablet 5 mg PO DAILY SLEEP 07/11/22 Hospital Course Operations None Procedures EKG and - (Tracheostomy placed via stoma hole) Summary of Care Provided Minutes Spent on Discharge: 39 Hospital Course: Mr. Sheriff is a 66-year-old white male who presented to the emergency department from his extended care facility with altered mental status and dyspnea on 07/11/2022. 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 Evidently, he typically communicates by writing and the patient is alert and oriented at baseline however he became acutely ill approximately an hour prior to presentation at the [facility]. They suctioned about 600 cc of saliva out of his tracheostomy site and sent him to the emergency department. History and presentation was limited secondary to his inability to participate with his mental status. He was pancultured prior to admission and had a markedly elevated white count greater than 20,000. He was placed on IV antibiotics with vancomycin and Zosyn. Cultures were obtained prior to antibiotic initiation. A Shiley trach tube was placed in the stoma hole and he was placed on mechanical ventilation. He did not require any pressors. He met criteria for sepsis on admission and had acute hypoxic and hypercapnic respiratory failure. His initial ABG H of 7.16/PO2 of 81 on 10 L trach collar and his PCO2 was 82.3. After being placed on mechanical ventilation he had rapid improvement of his pH and PCO2. We were able to discontinue mechanical ventilation on the a.m. of 07/12/2022. We asked speech therapy to evaluate him and his participation was limited however with previous laryngectomy his overall risk of aspiration was low so he was started on a diet and given p.o. medications. He was stable through the night and the stoma was decannulated on the a.m. of 07/13/2022. He refused a.m. speech therapy. The patient was taking his pills in the late morning and developed acute hypoxia, hypertension, tachycardia, and tachypnea. I strongly suspected aspiration at that point and instructed the patient that we had to have speech therapy evaluate him. The patient has a tracheoesophageal prosthesis and upon examination which was better visualized now that his trach tube was removed there was noted to be continuous stream of blue Gatorade passing from his esophagus into his trachea. I discussed the case with ENT and they stated that this was something speech therapy usually exchanged. Unfortunately, speech therapy here does not have the training or the materials to assist with this and transfer to tertiary center was required. Blood cultures were pending at the time of discharge. Sputum cultures were positive for gram-negative rods and presumptive Danielle albicans. He was maintained on IV antibiotics and made n.p.o. His ENT is at so we did initiate transfer and he was excepted by Dr. Arellano in the ICU at for transfer once bed became available. They did feel a bed may be able to be available this evening however it may not be till tomorrow. Discharge was prepped for this evening and the patient was informed of this. Medication exchanges from p.o. to IV were made as able. This was explained to the patient. He was discharged to in hemodynamic stable condition on trach mask at 30% on the evening of 07/13/2022. Patient is involved with palliative care at baseline and takes scheduled benzodiazepine and narcotics. Discharge diagnoses: Acute hypoxic and hypercapnic respiratory failure Leukocytosis Sepsis secondary to aspiration pneumonia--> cultures currently with gram- negative rods Lactic acidosis-resolved Metabolic encephalopathy secondary to hypercapnia-resolved GERD COPD History of malignant neoplasm to the larynx Major depressive disorder Severe anxiety Chronic pain Insomnia Physical Exam Const alert, oriented x3 and no apparent distress Constitutional Narrative: Upper middle-aged white male sitting up in bed, resting comfortably, awakens and appropriately interactive, trach was removed this morning and now he has a trach mask over his ostomy currently at 30% General Appearance: cooperative, comfortable, well kempt and well developed Orientation / Consciousness: awake, oriented to person, oriented to place and oriented to time Exam Limitations: no limitations HEENT normocephalic, head/scalp atraumatic, hearing grossly normal bilaterally and moist oral mucous membranes HEENT Narrative: Dentures in place, Mallampati 2, no thrush Eyes PERRL, EOMs intact bilaterally and conjunctivae normal Neck no lymphadenopathy and supple Neck Narrative: Trachea midline with stoma in place Resp normal respiratory effort, no retractions and no use of accessory muscles Resp Narrative: Diffusely diminished, rhonchi at bilateral bases-improved since yesterday, patient with comfortable breathing at this time on trach mask Auscultation: rhonchi; Negative for crackles or wheezes Cardio regular rate, regular rhythm, S1 normal heart sound, S2 normal heart sound, no murmurs, no rub, no gallops and no clicks GI normal to inspection, nondistended, normoactive bowel sounds, soft to palpation and non-tender Extremity no clubbing, cyanosis or edema Extremity Narrative: 2+ pedal pulses Skin no rashes or lesions noted, no wounds, skin turgor normal and no jaundice Neuro oriented x3, CN's II-XII intact bilaterally, moves all extremities, no focal motor deficits and no sensory deficits noted Neuro Narrative: Patient able to vocalize very little by plugging his stomal with his thumb-I e ncouraged him not to do that however Psych Psych Narrative: Affect is flat and mood seems depressed patient with intermittent agitation Mood & Affect: depressed Weight / BMI Weight Weight: 74.5 kg Body Mass Index (BMI) 23.7 ABG / Lab / Microbiology Data Result Diagrams: 07/13/22 05:40 07/13/22 05:40 Laboratory: Laboratory Results - last 24 hr 07/13/22 05:40: Vancomycin Trough 8.2 07/13/22 05:40: WBC 26.6 H, RBC 3.26 L, Hgb 11.1 L, Hct 34.3 L, MCV 105.2 H D, MCH 34.0 H, MCHC 32.4, RDW Std Deviation 47.8 H, RDW Coeff of Judd 12.2, Plt Count 365, MPV 9.0, Immature Gran % (Auto) 0.600, Neut % (Auto) 92.3 H, Lymph % (Auto) 3.3 L, [place] % (Auto) 3.6, Eos % (Auto) 0.0, Baso % (Auto) 0.2, Absolute Neuts (auto) 24.5 H, Absolute Lymphs (auto) 0.89, Nucleated RBC % 0, Macrocytosis 1+ 07/13/22 05:40: Sodium 134 L, Potassium 3.6, Chloride 98, Carbon Dioxide 29.0, Anion Gap 7, BUN 7, Creatinine 0.52 L, Estim Creat Clear Calc 74.01, Est GFR (MDRD) Af Amer 202, Est GFR (MDRD) Non-Af 167, BUN/Creatinine Ratio 13.4, Glucose 128 H, Calcium 9.0, Phosphorus 3.1, Magnesium 2.1, Total Bilirubin 0.30, AST 17, ALT 19, Alkaline Phosphatase 87, Total Protein 8.2, Albumin 3.0 L, Globulin 5.2 H, Albumin/Globulin Ratio 0.6 L, Free T4 0.65 L Microbiology: Microbiology 07/12/22 00:30 Sputum, Expectorated/Coughed Gram Stain - Final 07/12/22 00:30 Sputum, Expectorated/Coughed Respiratory Culture - Preli minary GNR lactose [facility] dean Presumptive C albicans 07/11/22 19:22 Sputum, Induced/Lukens Gram Stain - Final 07/11/22 19:22 Sputum, Induced/Lukens Respiratory Culture - Preliminary Gram negative elvis Presumptive C albicans 07/11/22 16:38 Urine Catheter - Catheter Urine Culture - Final Culture exhibits no growth. 07/11/22 22:00 Urine Catheter - Peterson Legionella Antigen - Final 07/11/22 22:00 Urine Catheter - Peterson Streptococcus pneumoniae Antigen (M - Final Meaningful Use Info Meaningful Use Diagnoses (Choose all that apply): None applicable Discharge Plan Admission Admit Date/Time: 07/11/22 19:19 Primary Reason for Your Visit: Acute mental status change Attending Provider: Karol Mack Primary Care Provider: Guillermo Pinto Consulting Providers: Pedro Dyer ; Too Membreno ; Lazaro Olvera ; Frederick Justice ; Bradly Germain ; Farrah Rosales NP ; Juan Vázquez Discharge Orders/Prescriptions Prescriptions: No Action gabapentin 400 mg capsule 400 mg PO TID guaifenesin 100 mg/5 mL Liquid 200 mg PO Q4H PRN (Reason: Cough) alprazolam 0.5 mg tablet 0.5 mg PO BID dexamethasone 2 mg tablet 2 mg PO DAILY pantoprazole 40 mg tablet,delayed release (DR/EC) 40 mg PO DAILY mirtazapine 45 mg tablet 45 mg PO DAILY zolpidem 5 mg tablet 5 mg PO DAILY carbamazepine 300 mg capsule, ER multiphase 12 hr 300 mg PO BID oxycodone 10 mg tablet 10 mg PO Q4H PRN PRN (Reason: Pain) docusate sodium [Colace] 100 mg Capsule 100 mg PO BID melatonin 5 mg Tablet 5 mg PO QHS Referrals / Follow Up: Guillermo Pinto MD [Primary Care Provider] - Disposition Disposition (needs filled in before D/C Order can be placed): Acute Care Hospital Charges/Coding Visit Charges Inpatient E&M: 78506 Disch Hosp >30min
[2022-07-14] VITALS (8 sets, daily range): BP systolic 154–161; BP diastolic 82–98; PULSE 86–98; RESP 16–21; TEMP 36.6–37.2; O2SAT 94–99
[2022-07-14] MEDS: HYDROmorphone 1 MG/ML Syringe IV ×4 (06:00→18:27)
[2022-07-14] MEDS: 0.9% Saline Lock 10 ML Syringe IV ×6 (06:02→18:28)
[2022-07-14 06:40] LABS: Absolute Lymphocyte Count 1.23 X10^3/uL (0.83-4.51); Absolute Neutrophil Count 14.9 X10^3/uL (2.0-7.7); Basophil# 0.02 X10^3/uL; Basophil% 0.1 % (0-1); Hematocrit 32.3 % (40-54); Hemoglobin 10.5 g/dL (13.0-16.5); Lymphocyte # 1.23 X10^3/ul (0.83-4.51); Lymphocyte % 7.2 % (19-41); Mean Corp Hgb Conc 32.5 g/dL (32-36); Mean Corpuscular Hgb 32.8 pg (27.0-32.0); Mean Corpuscular Volume 100.9 fL (80-94); Mean Platelet Vol. 9.1 fl (6.2-12.0); Monocyte# 0.78 X10^3/uL; Monocyte% 4.6 % (0-10); NRBC Flagged by Analyzer 0 % (0-5); Neutrophil # 14.93 X10^3/uL (2.7-7.7); Neutrophil % 87.5 % (47-70); Platelet Count 389 K/mm3 (150-450); RBC Distribution Width SD 45.3 fl (35.1-43.9); White Blood Count 17.1 K/mm3 (4.4-11.0)
[2022-07-14 07:14] LABS: Anion Gap 9 (5-15); BUN 13 mg/dL (7-18); Calcium,Total 8.9 mg/dL (8.5-10.1); Chloride 97 mmol/L (98-107); EST Glomerular Filtration Rate 176 mL/min (>60); Est Glom Filt Rate - Afr Amer 213 mL/min (>60); Estimated Creatinine Clearance 74.01 ml/min; Glucose 103 mg/dL (74-106); Potassium 3.3 mmol/L (3.5-5.1); Sodium Level 135 mmol/L (136-145)
[2022-07-14] MEDS: dexAMETHasone 4 MG/ML Vial IV (10:05)
[2022-07-14] MEDS: Enoxaparin 40 MG/0.4 ML Syringe SC (10:06)
[2022-07-14] MEDS: Labetalol (Prefilled) 20 MG/4 ML 10 MG IV (10:17)
[2022-07-14] MEDS: 0.9% Normal Saline 1,000 ML 75 ML IV (10:20)
[2022-07-14] MEDS: Potassium Chloride 10mEq/100mL 10 MEQ/100 ML IV.SOLN. 100 MEQ IV BOLUS ×4 (10:20→15:06)
[2022-07-14] MEDS: LORazepam 2 MG/ML Syringe 0.5 MG IV ×2 (10:35→16:31)
[2022-07-14] MEDS: Ipratropium/Albuterol Sulfate 3 ML AMPUL.NEB INHALATION (11:32)
[2022-07-14] MEDS: LEVOTHYROXINE SODIUM 100 MCG VIAL 50 MCG IV (11:59)
--- NOTE | 2022-07-14 12:10 | PCM.HOSP.N ---
Hospitalist Note Patient was not discharged last evening due to no bed availability however we did discuss the case with and they thought a bed would become available today after 5 PM[address] orders in place. No significant issues overnight. Will remain n.p.o. White count is markedly improved and will continue antibiotics. I do not suspect his length of stay will be extremely long once this prosthesis is able to be changed given the fact he is clinically improving.
--- NOTE | 2022-07-14 12:11 | DS.PCM_ITS ---
Providers Date of Admission: 07/11/22 Date of Discharge: 07/14/22 Primary Care Physician: Dr. Guillermo Pinto MD Consultations 07/11/22 20:42 Consult: Correctional Food Service Supervisor / Pulmonary Medicine Routine Consulting Provider: Pulmonary Medicine jackelyn [place] Reason for Consult: sepsis, critical care EMERGENT Consult: No Notified: Yes Date Notified: 07/12/22 Time Notified: 00:47 Method of Notification: Text 07/13/22 11:59 Consult: ENT Routine Consulting Provider: Juan Vázquez Reason for Consult: L fitting tracheoesophageal prostheses causing aspiration EMERGENT Consult: No Notified: Yes Date Notified: 07/13/22 Time Notified: 13:24 Method of Notification: Verbal Reason For Visit: SEPSIS Diagnosis Discharge Diagnosis (1) Acute respiratory failure with hypoxia and hypercapnia: Status: Acute Code(s): J96.01 - Acute respiratory failure with hypoxia; J96.02 - Acute respiratory failure with hypercapnia Medications at Discharge Home Medications alprazolam 0.5 mg tablet 0.5 mg PO BID ANXIETY 07/11/22 carbamazepine 300 mg capsule,extended release [id number] 300 mg PO BID . 07/11/22 dexamethasone 2 mg tablet 2 mg PO DAILY . 07/11/22 docusate sodium 100 mg capsule (Colace) 100 mg PO BID CONSTIPATION 07/11/22 gabapentin 400 mg capsule 400 mg PO TID PAIN 07/11/22 guaifenesin 100 mg/5 mL oral liquid 200 mg PO Q4H PRN Cough 07/11/22 melatonin 5 mg tablet 5 mg PO QHS SLEEP 07/11/22 mirtazapine 45 mg tablet 45 mg PO DAILY . 07/11/22 oxycodone 10 mg tablet 10 mg PO Q4H PRN PRN Pain 07/11/22 pantoprazole 40 mg tablet,delayed release 40 mg PO DAILY GERD 07/11/22 zolpidem 5 mg tablet 5 mg PO DAILY SLEEP 07/11/22 Hospital Course Operations None Procedures - (Tracheostomy tube placement and removal/chest x-ray) Summary of Care Provided Minutes Spent on Discharge: 39 Hospital Course: Mr. Sheriff is a 66-year-old white male who presented to the emergency department from his extended care facility with altered mental status and dyspnea on 07/11/2022.? He of previous laryngectomy for laryngeal cancer and has a chronic stoma.? Evidently, he typically communicates by writing and the patient is alert and oriented at baseline however he became acutely ill approximately an hour [facility] They suctioned about 600 cc of saliva out of his tracheostomy site and sent him to the emergency department.? History and presentation was limited secondary to his inability to participate with his mental status.? He was pancultured prior to admission and had a markedly elevated white count greater than 20,000.? He was placed on IV antibiotics with vancomycin and Zosyn.? Cultures were obtained prior to antibiotic initiation.? A Shiley trach tube was placed in the stoma hole and he was placed on mechanical ventilation.? He did not require any pressors.? He met criteria for sepsis on admission and had acute hypoxic and hypercapnic respira tory failure.? His initial ABG showed a pH of 7.16/PO2 of 81 on 10 L trach collar and his PCO2 was 82.3.? After being placed on mechanical ventilation he had rapid improvement of his pH and PCO2.? We were able to discontinue mechanical ventilation on the a.m. of 07/12/2022.? We asked speech therapy to evaluate him and his participation was limited however with previous laryngectomy his overall risk of aspiration was low so he was started on a diet and given p.o. medications.? He was stable through the night and the stoma was decannulated on the a.m. of 07/13/2022.? He refused a.m. speech therapy.? The patient was taking his pills in the late morning and developed acute hypoxia, hypertension, tachycardia, and tachypnea.? I strongly suspected aspiration at that point and instructed the patient that we had to have speech therapy evaluate him.? The patient has a tracheoesophageal prosthesis and upon examination which was better visualized now that his trach tube was removed there was noted to be continuous stream of blue Gatorade passing from his esophagus into his trachea.? I discussed the case with ENT and they stated that this was something speech therapy usually exchanged.? Unfortunately, speech therapy here does not have the training or the materials to assist with this and transfer to tertiary center was required.? Blood cultures were pending at the time of discharge.? Sputum cultures were positive for gram-negative rods and presumptive Danielle albicans.? He was maintained on IV antibiotics and made n.p.o.? His ENT is at so we did initiate transfer and he was excepted by Dr. Arellano in the ICU at for transfer once bed became available.? They did feel a bed may be able to be available this evening however it may not be till tomorrow.? Discharge was prepped for this evening and the patient was informed of this.? Medication exchanges from p.o. to IV were made as able.? This was explained to the patient.? The patient was to be discharged to on the evening of 07/13/2022 however no bed became available and they were unable to accept him. We have discussed the case and this likely the bed will be available this evening after 5 PM after discharges. The patient remained stable overnight and remains on 30% trach mask. His white count is improving on IV antibiotics and being NPO. He clinically remains feeling well. I suspect he will not need an extensive length of stay after transfer once this prosthesis gets exchanged and he is able to go back on a p.o. diet as he is clinically much better with IV antibiotics at this time. He will need a total of 7 days antibiotics. Today is day 3 of 7. He was discharged to [facility] in stable condition on 2022. 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 Lactic acidosis-resolved Metabolic encephalopathy secondary to hypercapnia-resolved GERD COPD History of malignant neoplasm to the larynx Major depressive disorder Severe anxiety Chronic pain Insomnia Physical Exam Const alert, oriented x3 and no apparent distress Constitutional Narrative: Upper middle-aged white male lying in bed in right side-lying, resting comfortably, room is dark, awakens and appropriately interactive, trach mask in place at 30% General Appearance: cooperative, comfortable, well kempt and well developed Orientation / Consciousness: awake, oriented to person, oriented to place and oriented to time Exam Limitations: no limitations HEENT normocephalic, head/scalp atraumatic, hearing grossly normal bilaterally and moist oral mucous membranes Eyes PERRL, EOMs intact bilaterally and conjunctivae normal Neck no lymphadenopathy and supple Neck Narrative: Trachea midline with stoma in place Resp normal respiratory effort, no retractions, no use of accessory muscles and clear to auscultation bilaterally Resp Narrative: Diffusely diminished but clear Auscultation: Negative for crackles, rhonchi or wheezes Cardio regular rate, regular rhythm, S1 normal heart sound, S2 normal heart sound, no murmurs, no rub, no gallops and no clicks GI normal to inspection, nondistended, normoactive bowel sounds, soft to palpation and non-tender Extremity no clubbing, cyanosis or edema Extremity Narrative: 2+ pedal pulses Skin no rashes or lesions noted, no wounds, skin turgor normal and no jaundice Neuro oriented x3, CN's II-XII intact bilaterally, moves all extremities, no focal motor deficits and no sensory deficits noted Neuro Narrative: Patient able to vocalize very little by plugging his stomal with his thumb-I encouraged him not to do that however Speech: Negative for speech normal Psych Psych Narrative: Affect is flat and mood seems depressed patient with intermittent agitation Mood & Affect: depressed Weight / BMI Weight Weight: 75 kg Body Mass Index (BMI) 23.7 ABG / Lab / Microbiology Data Result Diagrams: 07/14/22 06:25 07/14/22 06:25 Laboratory: Laboratory Results - last 24 hr 07/14/22 06:25: WBC 17.1 H, RBC 3.20 L, Hgb 10.5 L, Hct 32.3 L, MCV 100.9 H, MCH 32.8 H, MCHC 32.5, RDW Std Deviation 45.3 H, RDW Coeff of Judd 12.0, Plt Count 389, MPV 9.1, Immature Gran % (Auto) 0.600, Neut % (Auto) 87.5 H, Lymph % (Auto) 7.2 L, [place] % (Auto) 4.6, Eos % (Auto) 0.0, Baso % (Auto) 0.1, Absolute Neuts (auto) 14.9 H, Absolute Lymphs (auto) 1.23, Nucleated RBC % 0 07/14/22 06:25: Sodium 135 L, Potassium 3.3 L, Chloride 97 L, Carbon Dioxide 29.0, Anion Gap 9, BUN 13, Creatinine 0.50 L, Estim Creat Clear Calc 74.01, Est GFR (MDRD) Af Amer 213, Est GFR (MDRD) Non-Af 176, BUN/Creatinine Ratio 26.0 H, Glucose 103, Calcium 8.9 Microbiology: Microbiology 07/11/22 16:15 Blood Culture (Wb) - Right Hand Blood Culture - Preliminary No growth in 48 hours. 07/11/22 16:05 Blood Culture (Wb) - Left Forearm Blood Culture - Preliminary No growth in 48 hours. 07/12/22 00:30 Sputum, Expectorated/Coughed Gram Stain - Final 07/12/22 00:30 Sputum, Expectorated/Coughed Respiratory Culture - Final Serratia marcescens Presumptive C albicans Pseudomonas aeroginosa 07/11/22 19:22 Sputum, Induced/Lukens Gram Stain - Final 07/11/22 19:22 Sputum, Induced/Lukens Respiratory Culture - Final Presumptive C albicans Pseudomonas aeroginosa 07/11/22 16:38 Urine Catheter - Catheter Urine Culture - Final Culture exhibits no growth. 07/11/22 22:00 Urine Catheter - Peterson Legionella Antigen - Final 07/11/22 22:00 Urine Catheter - Peterson Streptococcus pneumoniae Antigen (M - Final D/C Instructions Discharge Diet: - (N.p.o.) Meaningful Use Info Meaningful Use Diagnoses (Choose all that apply): None applicable Discharge Plan Admission Admit Date/Time: 07/11/22 19:19 Primary Reason for Your Visit: Acute mental status change Attending Provider: Karol Mack Primary Care Provider: Guillermo Pinto Consulting Providers: Pedro Dyer ; Too Membreno ; Lazaro Olvera ; Frederick Justice ; Bradly Germain ; Farrah Rosales NP ; Juan Vázquez Discharge Orders/Prescriptions Prescriptions: No Action gabapentin 400 mg capsule 400 mg PO TID guaifenesin 100 mg/5 mL Liquid 200 mg PO Q4H PRN (Reason: Cough) alprazolam 0.5 mg tablet 0.5 mg PO BID dexamethasone 2 mg tablet 2 mg PO DAILY pantoprazole 40 mg tablet,delayed release (DR/EC) 40 mg PO DAILY mirtazapine 45 mg tablet 45 mg PO DAILY zolpidem 5 mg tablet 5 mg PO DAILY carbamazepine 300 mg capsule, ER multiphase 12 hr 300 mg PO BID oxycodone 10 mg tablet 10 mg PO Q4H PRN PRN (Reason: Pain) docusate sodium [Colace] 100 mg Capsule 100 mg PO BID melatonin 5 mg Tablet 5 mg PO QHS Referrals / Follow Up: Guillermo Pinto MD [Primary Care Provider] - Disposition Disposition (needs filled in before D/C Order can be placed): Acute Care Hospital Charges/Coding Visit Charges Inpatient E&M: 02244 Disch Hosp >30min
[2022-07-14 13:46] LABS: Pathologist Review Reviewed
--- NOTE | 2022-07-14 17:10 | NURSING ---
spoke with sister she is aware of transport
--- NOTE | 2022-07-14 18:22 | NURSING ---
report called to DONY Guadarrama RN
== END 2022-07-14 19:04 | disposition short-term general hospital (02) | DRG 871 ==
LOC: ED 16:50 → ICU 20:03 → PCU 07-13 17:41
PROVIDERS: Admitting Provider Hospitalist; Emergency Provider Student in an Organized Health Care Education/Training Program; PCP Family Medicine; Visit Provider Internal Medicine
DX: A41.52 Sepsis due to Pseudomonas (principal); J69.0 Pneumonitis due to inhalation of food and vomit; J96.01 Acute respiratory failure with hypoxia; J96.02 Acute respiratory failure with hypercapnia; G93.41 Metabolic encephalopathy; E87.20 Acidosis, unspecified; J95.09 Other tracheostomy complication; E87.1 Hypo-osmolality and hyponatremia; B37.0 Candidal stomatitis; J44.9 Chronic obstructive pulmonary disease, unspecified; E03.9 Hypothyroidism, unspecified; K21.9 Gastro-esophageal reflux disease without esophagitis; F32.9 Major depressive disorder, single episode, unspecified; I10 Essential (primary) hypertension; F10.10 Alcohol abuse, uncomplicated; F41.1 Generalized anxiety disorder; G89.3 Neoplasm related pain (acute) (chronic); G47.00 Insomnia, unspecified; Y90.0 Blood alcohol level of less than 20 mg/100 ml; Z66 Do not resuscitate; Z90.02 Acquired absence of larynx; Z79.899 Other long term (current) drug therapy; Z85.21 Personal history of malignant neoplasm of larynx; Z87.891 Personal history of nicotine dependence
CPT/HCPCS: 31500; 31502; 31720; 36415; 36600; 71045; 80048; 80053; 80202; 81001; 82077; 82550; 82803; 83605; 83735; 84100; 84439; 84478; 85025; 85610; 85730; 87040; 87070; 87077; 87086; 87186; 87205; 87449; 92526; 92610; 93005; 94002; 94003; 94640; 97162; 97166; 99252; 99284; J7030; J7040; J7050; A4216; G0463

== ENCOUNTER → 2022-08-10 | Outpatient (REF) | payer MEDICARE, MEDICAID, SELFPAY ==
[2022-08-10 09:19] LABS: Absolute Lymphocyte Count 2.48 X10^3/uL (0.83-4.51); Absolute Neutrophil Count 10.9 X10^3/uL (2.0-7.7); Basophil% 0.7 % (0-1); Eosinophil# 0.49 X10^3/uL; Eosinophils% 3.2 % (0-5); Hematocrit 33.4 % (40-54); Hemoglobin 10.6 g/dL (13.0-16.5); Lymphocyte # 2.48 X10^3/ul (0.83-4.51); Lymphocyte % 16.3 % (19-41); Mean Corp Hgb Conc 31.7 g/dL (32-36); Mean Corpuscular Hgb 31.4 pg (27.0-32.0); Mean Corpuscular Volume 98.8 fL (80-94); Mean Platelet Vol. 9.3 fl (6.2-12.0); Monocyte% 7.9 % (0-10); NRBC Flagged by Analyzer 0 % (0-5); Neutrophil # 10.87 X10^3/uL (2.7-7.7); Neutrophil % 71.2 % (47-70); Platelet Count 487 K/mm3 (150-450); RBC Distribution Width SD 47.2 fl (35.1-43.9); Red Blood Count 3.38 M/mm3 (4.6-6.2); White Blood Count 15.2 K/mm3 (4.4-11.0)
[2022-08-10 10:06] LABS: BUN 10 mg/dL (7-18); Creatinine, Serum 0.62 mg/dL (0.70-1.30); Glucose 76 mg/dL (74-106)
[2022-08-10 10:07] LABS: Anion Gap 10 (5-15); BUN/Creat Ratio 16.1 RATIO (10-20); Calcium,Total 9.4 mg/dL (8.5-10.1); Chloride 97 mmol/L (98-107); EST Glomerular Filtration Rate 137 mL/min (>60); Est Glom Filt Rate - Afr Amer 165 mL/min (>60); Potassium 3.8 mmol/L (3.5-5.1); Sodium Level 133 mmol/L (136-145)
== END ==
LOC: OLS.SW 05:00
PROVIDERS: PCP Family Medicine; Visit Provider Family Medicine
DX: R68.89 Other general symptoms and signs (principal); Z13.228 Encounter for screening for other metabolic disorders
CPT/HCPCS: 36415; 80048; 85025

== ENCOUNTER → 2022-08-12 | Outpatient (REF) | payer MEDICARE, MEDICAID, SELFPAY ==
[2022-08-12 09:10] LABS: Absolute Lymphocyte Count 2.17 X10^3/uL (0.83-4.51); Absolute Neutrophil Count 9.4 X10^3/uL (2.0-7.7); Basophil# 0.07 X10^3/uL; Basophil% 0.5 % (0-1); Eosinophil# 0.46 X10^3/uL; Eosinophils% 3.5 % (0-5); Hematocrit 27.9 % (40-54); Hemoglobin 9.3 g/dL (13.0-16.5); Lymphocyte # 2.17 X10^3/ul (0.83-4.51); Lymphocyte % 16.4 % (19-41); Mean Corp Hgb Conc 33.3 g/dL (32-36); Mean Corpuscular Hgb 32.2 pg (27.0-32.0); Mean Corpuscular Volume 96.5 fL (80-94); Mean Platelet Vol. 9.2 fl (6.2-12.0); Monocyte# 1.07 X10^3/uL; Monocyte% 8.1 % (0-10); NRBC Flagged by Analyzer 0 % (0-5); Neutrophil % 70.9 % (47-70); Platelet Count 456 K/mm3 (150-450); RBC Distribution Width SD 45.6 fl (35.1-43.9); Red Blood Count 2.89 M/mm3 (4.6-6.2); White Blood Count 13.3 K/mm3 (4.4-11.0)
[2022-08-16 06:10] LABS: Free T3 1.7 pg/mL (2.18-3.98); T4 Free Direct 0.82 ng/dL (0.76-1.46); Thyroid Stim Hormone (TSH) 9.88 uIU/mL (0.358-3.74)
== END ==
LOC: OLS.SW 08:20
PROVIDERS: PCP Family Medicine; Visit Provider Family Medicine
DX: J44.9 Chronic obstructive pulmonary disease, unspecified (principal); E03.9 Hypothyroidism, unspecified
CPT/HCPCS: 36415; 84439; 84443; 84481; 85025

== ENCOUNTER → 2022-09-08 | Outpatient (REF) | payer MEDICARE, MEDICAID, SELFPAY ==
[2022-09-08 11:02] LABS: Thyroid Stim Hormone (TSH) 6.01 uIU/mL (0.358-3.74)
== END ==
LOC: OLS.SW 07:45
PROVIDERS: PCP Family Medicine; Visit Provider Family Medicine
DX: E03.9 Hypothyroidism, unspecified (principal)
CPT/HCPCS: 36415; 84443

== ENCOUNTER 2022-09-14 13:56 | Inpatient (IN) | payer MEDICARE, MEDICAID, SELFPAY ==
[2022-09-14] VITALS (14 sets, daily range): BP systolic 92–167; BP diastolic 58–78; PULSE 83–109; RESP 14–20; TEMP -12.7–37.6; O2SAT 8–197; BMI 21.9; BMI 20.5
--- NOTE | 2022-09-14 14:33 | EX.ED.VIS.UR ---
HPI HPI - URI History of Present Illness Chief Complaint: Shortness of Breath Detail of Chief Complaint: Phlegm from tracheostomy. 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 Also has a history of aspiration. Patient is a resident at [facility]. Sent in today due to cough and dark green phlegm from his tracheostomy site. No fever. Sister is in the room and is helping with the history. Prior similar symptoms: Yes Recent Illness/Hospitalization: Yes ROS ROS ED ROS Narrative Productive cough over the present sputum. Review of Systems ROS Unobtainable: Denies due to encephalopathy Constitutional Constitutional ED: Denies chills or fever(s) Eyes Eyes: Denies blurry vision ENT ENT ED: Denies ear pain Cardiovascular Cardiovascular: Denies chest pain Respiratory/Chest Respiratory/Chest: Denies cough or dyspnea Gastrointestinal Gastrointestinal: Denies abdominal pain Genitourinary Genitourinary ED: Denies dysuria or hematuria Musculoskeletal Musculoskeletal: Denies arthralgias Integumentary Denies abscess or Abrasions Neurologic Neurologic: Denies headache(s) Psychiatric Psychiatric: Denies anxiety or depression Endocrine Endocrinology: Denies cold intolerance Hematologic/Lymphatic Hematologic/Lymphatic: Denies easy bleeding Allergic/Immunologic Allergic/Immunologic ED: Denies mouth swelling PFSH PFSH Medical History Anxiety Blindness of left eye COPD (chronic obstructive pulmonary disease) GERD (gastroesophageal reflux disease) Major depressive disorder Malignant neoplasm of larynx Home Medications alprazolam 0.5 mg tablet 0.5 mg PO BID ANXIETY 07/11/22 [History Last Taken 07/11/22] carbamazepine 300 mg capsule,extended release [id number] 300 mg PO BID . 07/11/22 [History Last Taken 07/11/22] dexamethasone 2 mg tablet 2 mg PO DAILY . 07/11/22 [History Last Taken 07/11/22] docusate sodium 100 mg capsule (Colace) 100 mg PO BID CONSTIPATION 07/11/22 [History Last Taken 07/11/22] gabapentin 400 mg capsule 400 mg PO TID PAIN 07/11/22 [History Last Taken 07/11/22] guaifenesin 100 mg/5 mL oral liquid 200 mg PO Q4H PRN Cough 07/11/22 [History Last Taken Unknown] melatonin 5 mg tablet 5 mg PO QHS SLEEP 07/11/22 [History Last Taken 07/10/22] mirtazapine 45 mg tablet 45 mg PO DAILY . 07/11/22 [History Last Taken 07/10/22] oxycodone 10 mg tablet 10 mg PO Q4H PRN PRN Pain 07/11/22 [History Last Taken 07/11/22] pantoprazole 40 mg tablet,delayed release 40 mg PO DAILY GERD 07/11/22 [History Last Taken 07/11/22] zolpidem 5 mg tablet 5 mg PO DAILY SLEEP 07/11/22 [History Last Taken 07/10/22] Allergy/AdvReac Type Severity Reaction Status Date / Time No Known Allergies Allergy Verified 09/14/22 14:06 Family History Other Cancer Surgical History History of laryngectomy Social History Smoking Status: Former smoker EXAM Physical Exam Narrative Exam Narrative: 66-year-old no acute distress. Vital signs are stable with temperature 99.7. He does not look septic or toxic. On 3 L he is 97%. Respiratory suctioned his trach. H EENT exam unremarkable. Mildly dry mucous membranes. Neck nontender Tracheostomy. Lungs clear to auscultation bilaterally. Heart regular rhythm rate about 105 no murmur. Chest wall nontender. Abdomen soft nontender. Moving all 4 extremities. Calves are nontender without edema or cords. Neurologically is awake and alert with no focal motor deficits. Const Vital Signs: 09/14/22 13:56 09/14/22 14:03 09/14/22 14:06 Temperature 99.7 F H Temperature Source Temporal Pulse Rate 109 H Respiratory Rate 14 Respiratory Effort Short of Breath Labored Blood Pressure 95/66 167/78 H Blood Pressure Mean 75 107 Pulse Ox 97 Oxygen Delivery Method Room Air Nasal Cannula Oxygen Flow Rate (L/min) 3 09/14/22 15:18 09/14/22 16:00 09/14/22 16:01 Temperature 98.7 F Temperature Source Temporal Pulse Rate 109 H 109 H Respiratory Rate 14 14 Respiratory Effort Blood Pressure 135/70 H 135/70 H Blood Pressure Mean 91 91 Pulse Ox 8 97 97 Oxygen Delivery Method Trach Collar Trach Collar Trach Collar Oxygen Flow Rate (L/min) 8 8 Positive well nourished and well developed; Negative for obese, cachectic or contractures General Appearance ED: well developed and NAD; Negative for cachectic, contractures, cyanotic, diaphoretic or pallor Nutritional Appearance: Negative for cachectic or obese HEENT Reports dry mucous membranes; Denies moist mucous membranes normocephalic; Negative for atraumatic Mouth ED: Yes dry mucous membranes Mouth: dry mucous membranes Eyes PERRL and EOMs intact bilaterally General Eye ED: Negative for pale conjunctiva or scleral icterus Neck no lymphadenopathy, supple, no meningeal signs and no JVD Neck Narrative: Tracheostomy. General: Negative for anterior neck swelling Resp normal respiratory effort and clear to auscultation bilaterally Effort and Inspection: Negative for retractions Auscultation: Negative for rales or rhonchi Cardio S1 normal heart sound, S2 normal heart sound and no murmurs Rate: regular rate Rhythm: regular rhythm GI non-tender, non-distended and no masses Inspection: Negative for abdominal distention Auscultation: normoactive bowel sounds Palpation: soft; Negative for tender or guarding Back/Spine no CVA tenderness and normal ROM General Back: Negative for CVA tenderness Cervical Spine: Negative for cervical spine tenderness Extremity normal to inspection and full ROM General Extremety ED: Negative for cyanosis or tenderness General Extremity: Negative for cyanosis Neuro oriented x3 Sensorium / Orientation: alert, oriented to person, oriented to place and oriented to time Motor Exam: strength 5/5 throughout Psych mental status grossly normal Appearance: Negative for other Attitude: No agitated Mood & Affect: Negative for depressed, anxious or tearful Skin General Skin Exam: Negative for jaundice or pallor Lesions: no lesions Rashes: no rashes Trauma: Negative for abrasion MDM MDM MDM Narrative Medical decision making narrative: 66-year-old with green phlegm from his tracheostomy. Evidence family is concerned and wanted him to be evaluated for possible pneumonia. He has a history of such. S x-ray and labs are being obtained. Patient respiratory did suction his tracheostomy. Patient has elevated white count again of 22.1. His chest x-ray looks like lower lobe pneumonia again. This may be aspiration versus community-acquired pneumonia versus nosocomial because he was in the hospital a month ago. I will admit him. I have the hospitalist on page. He will be started on IV antibiotics. Repeat exam patient is unchanged at this time at 430. History & Record Review Discussion w/independent historian: Patient and Family Lab Data Attestation: I reviewed the patient's lab results. Lab results narrative: CBC shows an elevated white count of 22.1. H&H 11.1 and 34.1. Platelets of 523. Electrolytes show sodium 129. Gap of 5. Normal BUN and creatinine. Glucose 96. Labs: Laboratory Results - last 24 hr 09/14/22 09/14/22 14:09 14:09 WBC 22.1 H RBC 3.64 L Hgb 11.1 L Hct 34.1 L MCV 93.7 MCH 30.5 MCHC 32.6 RDW Std Deviation 46.5 H RDW Coeff of Judd 13.4 Plt Count 523 H MPV 9.8 Immature Gran % (Auto) 0.500 Neut % (Auto) 87.2 H Lymph % (Auto) 4.8 L Frontier % (Auto) 5.6 Eos % (Auto) 1.6 Baso % (Auto) 0.3 Absolute Neuts (auto) 19.3 H Absolute Lymphs (auto) 1.07 Nucleated RBC % 0 Sodium 129 L Potassium 3.2 L Chloride 94 L Carbon Dioxide 30.0 Anion Gap 5 BUN 10 Creatinine 0.56 L Estim Creat Clear Calc 70.47 Est GFR (MDRD) Af Amer 187 Est GFR (MDRD) Non-Af 155 BUN/Creatinine Ratio 17.9 Glucose 96 Calcium 9.5 Radiography Chest X-Ray - ED: 2 View and Read by ED Physician Diagnostic Testing: Clinical Impression(s) from Imaging Studies Chest X-Ray 09/14/22 15:40 IMPRESSION: Bilateral pneumonia. Right upper lobe finding has enlarged. Recommend CT chest. Electronically Signed: Xavier Lauren MD at 16:19 EDT , Chest x-ray, 2 views, AP and lateral, interpreted by myself the radiologist as bilateral lower lobe infiltrates. A lot of this is chronic changes. And there is also right upper lobe abnormality that may need further investigation. Management Discussion w/another healthcare provider: Hospitalist Discharge Plan Triage Chief Complaint: Shortness of Breath ED Provider: Yousuf Titus Dx/Rx/DC Orders Clinical Impression: Bilateral pneumonia, Leukocytosis, History of aspiration pneumonia, History of COPD, History of laryngeal cancer Prescriptions: No Action gabapentin 400 mg capsule 400 mg PO TID guaifenesin 100 mg/5 mL Liquid 200 mg PO Q4H PRN (Reason: Cough) alprazolam 0.5 mg tablet 0.5 mg PO BID dexamethasone 2 mg tablet 2 mg PO DAILY pantoprazole 40 mg tablet,delayed release (DR/EC) 40 mg PO DAILY mirtazapine 45 mg tablet 45 mg PO DAILY zolpidem 5 mg tablet 5 mg PO DAILY carbamazepine 300 mg capsule, ER multiphase 12 hr 300 mg PO BID oxycodone 10 mg tablet 10 mg PO Q4H PRN PRN (Reason: Pain) docusate sodium [Colace] 100 mg Capsule 100 mg PO BID melatonin 5 mg Tablet 5 mg PO QHS Primary Care Provider: Guillermo Pinto Referrals: Guillermo Pinto MD [Primary Care Provider] - Disposition Disposition: Acute Care Hospital [facility]
[2022-09-14 14:43] LABS: Absolute Lymphocyte Count 1.07 X10^3/uL (0.83-4.51); Absolute Neutrophil Count 19.3 X10^3/uL (2.0-7.7); Basophil# 0.06 X10^3/uL; Basophil% 0.3 % (0-1); Eosinophil# 0.36 X10^3/uL; Eosinophils% 1.6 % (0-5); Hematocrit 34.1 % (40-54); Hemoglobin 11.1 g/dL (13.0-16.5); Lymphocyte # 1.07 X10^3/ul (0.83-4.51); Lymphocyte % 4.8 % (19-41); Mean Corp Hgb Conc 32.6 g/dL (32-36); Mean Corpuscular Hgb 30.5 pg (27.0-32.0); Mean Corpuscular Volume 93.7 fL (80-94); Mean Platelet Vol. 9.8 fl (6.2-12.0); Monocyte# 1.23 X10^3/uL; Monocyte% 5.6 % (0-10); NRBC Flagged by Analyzer 0 % (0-5); Neutrophil % 87.2 % (47-70); Platelet Count 523 K/mm3 (150-450); RBC Distribution Width CV 13.4 % (11.6-14.6); RBC Distribution Width SD 46.5 fl (35.1-43.9); Red Blood Count 3.64 M/mm3 (4.6-6.2); White Blood Count 22.1 K/mm3 (4.4-11.0)
[2022-09-14 15:04] LABS: Anion Gap 5 (5-15); BUN 10 mg/dL (7-18); BUN/Creat Ratio 17.9 RATIO (10-20); Calcium,Total 9.5 mg/dL (8.5-10.1); Chloride 94 mmol/L (98-107); Creatinine, Serum 0.56 mg/dL (0.70-1.30); EST Glomerular Filtration Rate 155 mL/min (>60); Est Glom Filt Rate - Afr Amer 187 mL/min (>60); Estimated Creatinine Clearance 70.47 ml/min; Glucose 96 mg/dL (74-106); Potassium 3.2 mmol/L (3.5-5.1); Sodium Level 129 mmol/L (136-145)
[2022-09-14] MEDS: oxyCODONE 5 MG Tablet 10 MG PO ×2 (15:19→20:08)
--- NOTE | 2022-09-14 15:40 | RAD_ITS ---
STUDY: XR Chest 2 Views 09/14/2022 3:44 PM REASON FOR EXAM: Male, 66 years old. CHEST PAIN cough COMPARISON: 2.7.23 TECHNIQUE: XR Chest 2 Views FINDINGS: There is a right pleural effusion. Hyperinflation. patchy infiltrate in the lateral aspect of the right upper lobe. This may represent a pulmonary nodule. Since prior study, there has been an increase in the interstitial markings with areas of confluence in both lower lobes. This may represent bibasilar infiltrates superimposed on mild degree of CHF. Blunting of the left costophrenic angle. Normal heart size. Normal mediastinum. Normal deirdre. Prominent appearing increased interstitial lung markings. Normal visualized pulmonary arteries. There is atherosclerotic calcification of the aortic arch with tortuosity. There are diffuse degenerative changes of the visualized thoracic spine. There is degenerative osteoarthritis of the bilateral shoulders. There is no demonstrated abnormality of the visualized soft tissue structures of the upper abdomen. RAD/Chest PA and Lateral IMPRESSION: Bilateral pneumonia. Right upper lobe finding has enlarged. Recommend CT chest. Electronically Signed: Xavier Lauren MD at 16:19 EDT ,
--- NOTE | 2022-09-14 17:09 | NURSING ---
MED SURG OLEGHE PNEUMONIA, LEUKOCYTOSIS, HYPONATREMIA, COPD, TRACH, LARYNX CA
--- NOTE | 2022-09-14 18:06 | PCM.HP.STD ---
HPI - General General Date of Admission: 09/14/22 Date of Service: 09/14/22 Chief Complaint: Coughing up greenish-yellow sputum HPI Narrative VIRIDIANA ALMARAZ, is a 66 M with a history of laryngeal cancer status post radiation treatment, surgery and tracheostomy and currently on immunotherapy. Patient resides in a nursing home facility. penitentiary staff noted increasing cough productive of dark green-yellow sputum. Patient denied any trouble breathing. No reported fever or chills. No fever noted or reported. No oxygen desaturations either. Patient denies any chest pain nausea vomiting. [facility] Medical History Anxiety Blindness of left eye COPD (chronic obstructive pulmonary disease) GERD (gastroesophageal reflux disease) Major depressive disorder Malignant neoplasm of larynx Home Medications alprazolam 0.5 mg tablet 0.5 mg PO BID ANXIETY 07/11/22 [History Last Taken 07/11/22] carbamazepine 300 mg capsule,extended release [id number] 300 mg PO BID . 07/11/22 [History Last Taken 07/11/22] dexamethasone 2 mg tablet 2 mg PO DAILY . 07/11/22 [History Last Taken 07/11/22] docusate sodium 100 mg capsule (Colace) 100 mg PO BID CONSTIPATION 07/11/22 [History Last Taken 07/11/22] gabapentin 400 mg capsule 400 mg PO TID PAIN 07/11/22 [History Last Taken 07/11/22] guaifenesin 100 mg/5 mL oral liquid 200 mg PO Q4H PRN Cough 07/11/22 [History Last Taken Unknown] melatonin 5 mg tablet 5 mg PO QHS SLEEP 07/11/22 [History Last Taken 07/10/22] mirtazapine 45 mg tablet 45 mg PO DAILY . 07/11/22 [History Last Taken 07/10/22] oxycodone 10 mg tablet 10 mg PO Q4H PRN PRN Pain 07/11/22 [History Last Taken 07/11/22] pantoprazole 40 mg tablet,delayed release 40 mg PO DAILY GERD 07/11/22 [History Last Taken 07/11/22] zolpidem 5 mg tablet 5 mg PO DAILY SLEEP 07/11/22 [History Last Taken 07/10/22] Allergy/AdvReac Type Severity Reaction Status Date / Time No Known Allergies Allergy Verified 09/14/22 14:06 Family History Other Cancer Surgical History History of laryngectomy Social History Smoking Status: Former smoker ROS ROS Narrative Denies any chest pain abdominal pain or nausea vomiting. All other systems reviewed and essentially negative as above in the body of the history. Vital Signs Vital Signs Vital Signs: 09/14/22 13:56 09/14/22 14:03 09/14/22 14:06 Temperature 37.6 C H Temperature Source Temporal Pulse Rate 109 H Respiratory Rate 14 Respiratory Effort Short of Breath Labored Blood Pressure 95/66 167/78 H Blood Pressure Mean 75 107 Pulse Ox 97 Oxygen Delivery Method Room Air Nasal Cannula Oxygen Flow Rate (L/min) 3 09/14/22 15:18 09/14/22 16:00 09/14/22 16:01 Temperature 37.1 C Temperature Source Temporal Pulse Rate 109 H 109 H Respiratory Rate 14 14 Respiratory Effort Blood Pressure 135/70 H 135/70 H Blood Pressure Mean 91 91 Pulse Ox 8 97 97 Oxygen Delivery Method Trach Collar Trach Collar Trach Collar Oxygen Flow Rate (L/min) 8 8 09/14/22 16:36 09/14/22 17:08 09/14/22 17:00 Temperature 37.2 C 37.2 C Temperature Source Temporal Temporal Pulse Rate 100 100 100 Respiratory Rate 14 16 16 Respiratory Effort Blood Pressure 126/71 H 92/58 L 92/58 L Blood Pressure Mean 89 69 69 Pulse Ox 197 98 98 Oxygen Delivery Method Trach Collar Trach Collar Trach Collar Oxygen Flow Rate (L/min) 8 Weight Weight: 69.5 kg Body Mass Index (BMI) 21.9 Physical Exam Narrative General exam. Middle-aged man, chronically ill-appearing, not in any acute distress. Not dyspneic no labored breathing. Appears quite comfortable. HEENT. Oral mucosa dry. Neck. Tracheostomy noted with speaking valve. Scarring of the neck with restriction of movements. Lungs. Nonlabored breathing, slightly diminished breath sounds in the right lower lobe with faint wheezing occasionally head. Otherwise both lungs are fairly clear. Heart. First and second heart sounds heard no murmurs. Abdomen. Scaphoid. Nontender. No organomegaly or masses. Extremities. Muscle wasting. 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 Cranial 2-12 grossly intact. Skin. Dry All other organ systems reviewed and essentially negative. Results Medical Records Data Attestation: I reviewed the patient's medical records Lab / Micro Data Result Diagrams: 09/14/22 14:09 09/14/22 14:09 Labs: Laboratory Results - last 24 hr 09/14/22 14:09: WBC 22.1 H, RBC 3.64 L, Hgb 11.1 L, Hct 34.1 L, MCV 93.7, MCH 30.5, MCHC 32.6, RDW Std Deviation 46.5 H, RDW Coeff of Judd 13.4, Plt Count 523 H, MPV 9.8, Immature Gran % (Auto) 0.500, Neut % (Auto) 87.2 H, Lymph % (Auto) 4.8 L, [place] % (Auto) 5.6, Eos % (Auto) 1.6, Baso % (Auto) 0.3, Absolute Neuts (auto) 19.3 H, Absolute Lymphs (auto) 1.07, Nucleated RBC % 0 09/14/22 14:09: Sodium 129 L, Potassium 3.2 L, Chloride 94 L, Carbon Dioxide 30.0, Anion Gap 5, BUN 10, Creatinine 0.56 L, Estim Creat Clear Calc 70.47, Est GFR (MDRD) Af Amer 187, Est GFR (MDRD) Non-Af 155, BUN/Creatinine Ratio 17.9, Glucose 96, Calcium 9.5 Radiology Impression Chest X-Ray 09/14/22 15:40 IMPRESSION: Bilateral pneumonia. Right upper lobe finding has enlarged. Recommend CT chest. Electronically Signed: Xavier Lauren MD at 16:19 EDT , Assessment & Plan Assessment/Plan (1) Pneumonia: PLAN: Plan Assessment and plan 1. Lower respiratory tract infection. Pneumonia versus acute bronchitis. Hospital-acquired. Will start on IV antibiotic with Zosyn 3.75 grams every 8 hours. Pulmonary hygiene and toileting to assist with expectoration. Mucolytics. Consult respiratory therapy. 2. Chronic hypoxic respiratory failure. Secondary to COPD most likely. Continue oxygen supplementation. 3. Hyponatremia. Possibly secondary to dehydration (appropriate ADH secretion) or SIADH secondary to respiratory tract infection. We will rehydrate with normal saline. Check urine electrolytes, serum and urine osmolalities.
[2022-09-14] MEDS: Acetaminophen 325 MG Tablet 650 MG PO (18:19)
[2022-09-14] MEDS: Ipratropium/Albuterol Sulfate 3 ML AMPUL.NEB INHALATION (19:54)
[2022-09-14] MEDS: Acetylcysteine 800 MG/4 ML VIAL.NEB. 200 MG INHALATION (19:54)
[2022-09-14] MEDS: Lactated Ringers 1,000 ML 999 ML IV (19:57)
[2022-09-14] MEDS: MELATONIN 10 MG TABLET 5 MG PO (21:49)
[2022-09-14] MEDS: Zolpidem Tartrate 5 MG Tablet PO (21:51)
[2022-09-14] MEDS: Gabapentin 400 MG Capsule PO (21:51)
[2022-09-14] MEDS: Enoxaparin 40 MG/0.4 ML Syringe SC (21:51)
[2022-09-14] MEDS: ALPRAZolam 0.5 MG Tablet PO (21:52)
[2022-09-14] MEDS: guaiFENesin 10 ML UDC (200MG/10ML) 20 ML PO (21:57)
[2022-09-14] MEDS: carBAMazepine 200 MG Tablet 300 MG PO (21:58)
[2022-09-14] MEDS: KCl 20MEQ in D5NS 20 MEQ/1,000 ML IV.SOLN. 100 MEQ IV (22:12)
[2022-09-14] MEDS: Mirtazapine 30 MG Tablet 45 MG PO (22:24)
[2022-09-15] VITALS (9 sets, daily range): BP systolic 72–151; BP diastolic 44–73; PULSE 74–100; RESP 14–20; TEMP 36.6–38.1; O2SAT 28–98
[2022-09-15] MEDS: Gabapentin 400 MG Capsule PO ×3 (05:56→22:49)
[2022-09-15] MEDS: guaiFENesin 10 ML UDC (200MG/10ML) 20 ML PO ×4 (05:56→23:17)
[2022-09-15 06:15] LABS: Absolute Lymphocyte Count 1.83 X10^3/uL (0.83-4.51); Absolute Neutrophil Count 15.1 X10^3/uL (2.0-7.7); Basophil# 0.07 X10^3/uL; Basophil% 0.4 % (0-1); Eosinophil# 0.34 X10^3/uL; Eosinophils% 1.8 % (0-5); Hematocrit 34.5 % (40-54); Hemoglobin 10.9 g/dL (13.0-16.5); Lymphocyte # 1.83 X10^3/ul (0.83-4.51); Lymphocyte % 9.8 % (19-41); Mean Corp Hgb Conc 31.6 g/dL (32-36); Mean Corpuscular Hgb 29.5 pg (27.0-32.0); Mean Corpuscular Volume 93.2 fL (80-94); Monocyte# 1.24 X10^3/uL; Monocyte% 6.6 % (0-10); NRBC Flagged by Analyzer 0 % (0-5); Neutrophil # 15.06 X10^3/uL (2.7-7.7); Neutrophil % 80.8 % (47-70); Platelet Count 547 K/mm3 (150-450); RBC Distribution Width CV 13.4 % (11.6-14.6); RBC Distribution Width SD 45.8 fl (35.1-43.9); White Blood Count 18.7 K/mm3 (4.4-11.0)
[2022-09-15 06:42] LABS: ALB/GLOB Ratio 0.4 RATIO (0.9-2.4); AST(SGOT) 11 U/L (15-37); Alanine Aminotransfer ALT/SGPT 14 U/L (16-61); Albumin, Serum 2.6 g/dL (3.2-5.0); Alkaline Phosphatase 73 U/L (45-117); Anion Gap 3 (5-15); BUN 8 mg/dL (7-18); BUN/Creat Ratio 13.2 RATIO (10-20); Calcium,Total 9.8 mg/dL (8.5-10.1); Chloride 96 mmol/L (98-107); EST Glomerular Filtration Rate 141 mL/min (>60); Est Glom Filt Rate - Afr Amer 171 mL/min (>60); Estimated Creatinine Clearance 65.72 ml/min; Globulin 5.9 g/dL (2.2-4.2); Glucose 117 mg/dL (74-106); Magnesium 2.2 mg/dL (1.6-2.6); Phosphorus 3.2 mg/dL (2.5-4.9); Potassium 3.8 mmol/L (3.5-5.1); Protein, Total 8.5 g/dL (6.4-8.2); Sodium Level 131 mmol/L (136-145)
[2022-09-15 06:57] LABS: Osmolality, Serum 280 mOsm/KG (280-301)
--- NOTE | 2022-09-15 07:15 | CPS ---
pt appeared to need suctioning and refused, RN aware
[2022-09-15] MEDS: Acetylcysteine 800 MG/4 ML VIAL.NEB. 200 MG INHALATION ×3 (07:17→19:16)
[2022-09-15] MEDS: Ipratropium/Albuterol Sulfate 3 ML AMPUL.NEB INHALATION ×3 (07:18→19:16)
[2022-09-15] MEDS: carBAMazepine 200 MG Tablet 300 MG PO ×2 (09:32→22:55)
[2022-09-15] MEDS: KCl 20MEQ in D5NS 20 MEQ/1,000 ML IV.SOLN. 100 MEQ IV ×2 (09:34→18:31)
[2022-09-15] MEDS: oxyCODONE 5 MG Tablet 10 MG PO ×4 (10:01→22:50)
[2022-09-15] MEDS: dexAMETHasone 4 MG Tablet 2 MG PO (10:01)
[2022-09-15] MEDS: ALPRAZolam 0.5 MG Tablet PO ×2 (10:07→20:44)
[2022-09-15] MEDS: Acetaminophen 500 MG Tablet 1000 MG PO ×2 (10:29→18:27)
[2022-09-15] MEDS: Ensure Plus High Protein 120 ML LIQUID PO ×3 (10:33→23:18)
[2022-09-15 11:29] LABS: Osmolality, Urine 295 mOsm/KG
--- NOTE | 2022-09-15 11:29 | CASEMGMT ---
SW spoke with patient regarding discharge planning. Pt from [facility] [place] and confirmed with pt that he plans to return when medically able. Updates sent to [place] via [facility] and requested to return. Kaylee Adler ADAPTIVE PHYSICAL EDUCATION SPECIALIST, DATA MODELING ARCHITECT
[2022-09-15 11:33] LABS: Urine Sodium 117 mmol/L (Not Establ.)
--- NOTE | 2022-09-15 11:44 | CASEMGMT ---
[facility] reports pt is able to return and they are a Medicaid bed hold. Kaylee Adler SHEET ROCKER, BRICK SORTER
--- NOTE | 2022-09-15 15:29 | CHAPLAIN ---
Type of Pastoral Visit ___ Initial Visit ___ Follow-up Visit ___ On-call Visit ___ General Patient Visit ___ Spiritual Assessment ___ Family Conference ___ Bereavement ___ Rapid Response ___ Code Blue ___ Other (describe below) Pastoral Care Referral From ___ Patient ___ Family ___ Nurse ___ Physician ___ Venue Manager ___ Microsoft Systems Engineer ___ Other (describe below) Sacrament/Intervention ___ Active listening ___ Anointing ___ Buddhism ___ Bereavement ___ Communion ___ Madyson exploration ___ ___ Life review ___ Prayer ___ Reconciliation ___ Sacrament of Sick ___ Supportive presence ___ Wedding ___ Other (describe below) Pastoral Comments two attempts made to visit; patient is sleeping both times; did not awaken; left a calling card
--- NOTE | 2022-09-15 17:38 | PCM.PN.HOSP ---
Reason for Visit Reason for Visit: Diagnoses Pneumonia, unspecified organism (09/14/22) Subjective Subjective Seen and examined today, he does not appear to be in any respiratory distress. Nursing suctioned quite a bit of material from his trach today, patient remains on 28% oxygen via trach collar. Objective Data Objective Data Vital Signs: Vital Signs Temp Pulse Resp BP Pulse Ox O2 Del Method O2 Flow Rate 98.1 F 83 20 H 91/46 L 93 Trach Collar 6 09/15/22 14:50 09/15/22 14:50 09/15/22 14:50 09/15/22 14:50 09/15/22 14:50 09/15/22 16:20 09/15/22 13:45 FiO2 28 09/15/22 16:20 Oxygen Flow Rate (L/min) 6 Oxygen Delivery Method Trach Collar Weight: 64.818 kg Body Mass Index (BMI) 20.5 Intake & Output: Intake and Output for Last 24 Hours 09/13/22 09/14/22 09/15/22 23:59 23:59 23:59 Intake Total 1100 / 1100 1700 / 1700 Balance 1100 / 1100 1700 / 1700 Medical Nutrition Assessment Dietitian: Malnutrition Criteria Met Start: 09/15/22 11:35 Freq: Status: Active Protocol: Document 09/15/22 11:35 (Rec: 09/15/22 11:35 [id number]) Nutrition Malnutrition Evidence of Malnutrition Exists Yes Malnutrition (severe): Chronic Evidenced By Suboptimal Energy Intake ( Severe),Weight Loss (Severe), Physical Changes (Moderate) Clinical Problem Chronic Disease or Condition Related Malnutrition Etiology severe, chronic malnutrition related to inadequate energy intake d/t decreased appetite Signs/Symptoms as evidenced by unintentional 22.4#/14% wt loss x 2 months; estimated PO intake meeting < 75% of estimated energy needs > 3 months; Moderate muscle wasting/fat loss evident per physical exam in orbital, temporal, clavicle, and acromion areas. Status Active Problem Recommendation Dietitian Recommendations/Changes continue regular diet as tolerated; consider GUIDE DOG INSTRUCTOR consult if issues chewing/ swallowing evident. Will increase ensure to 4x/day w/ medpass. Lab / Micro Data Result Diagrams: 09/15/22 06:00 09/15/22 06:00 Labs: Laboratory Results - last 24 hr 09/15/22 06:00: WBC 18.7 H, RBC 3.70 L, Hgb 10.9 L, Hct 34.5 L, MCV 93.2, MCH 29.5, MCHC 31.6 L, RDW Std Deviation 45.8 H, RDW Coeff of Judd 13.4, Plt Count 547 H, MPV 9.0, Immature Gran % (Auto) 0.600, Neut % (Auto) 80.8 H, Lymph % (Auto) 9.8 L, [place] % (Auto) 6.6, Eos % (Auto) 1.8, Baso % (Auto) 0.4, Absolute Neuts (auto) 15.1 H, Absolute Lymphs (auto) 1.83, Nucleated RBC % 0 09/15/22 06:00: Sodium 131 L, Potassium 3.8, Chloride 96 L, Carbon Dioxide 32.0, Anion Gap 3 L, BUN 8, Creatinine 0.60 L, Estim Creat Clear Calc 65.72, Est GFR (MDRD) Af Amer 171, Est GFR (MDRD) Non-Af 141, BUN/Creatinine Ratio 13.2, Glucose 117 H, Calcium 9.8, Phosphorus 3.2, Magnesium 2.2, Total Bilirubin 0.40, AST 11 L, ALT 14 L, Alkaline Phosphatase 73, Total Protein 8.5 H, Albumin 2.6 L, Globulin 5.9 H, Albumin/Globulin Ratio 0.4 L 09/15/22 06:00: Serum Osmolality 280 09/15/22 11:10: Urine Osmolality 295 09/15/22 11:10: Ur Random Sodium 117 Physical Exam Const alert, oriented x3 and no apparent distress Constitutional Narrative: Patient appears older than his stated age General Appearance: cooperative, well kempt and well developed Orientation / Consciousness: awake, oriented to person, oriented to place and oriented to time HEENT normocephalic, head/scalp atraumatic and moist oral mucous membranes Eyes PERRL, EOMs intact bilaterally and conjunctivae normal Neck supple, no JVD and thyroid normal Neck Narrative: Patient has a permanent trach Resp normal respiratory effort, no retractions, no use of accessory muscles and clear to auscultation bilaterally Auscultation: Negative for rales, rhonchi or wheezes Cardio regular rate, regular rhythm, S1 normal heart sound, S2 normal heart sound, no murmurs, no rub and no gallops GI normal to inspection, nondistended, normoactive bowel sounds, soft to palpation, non-tender and non-distended Extremity normal to inspection and no clubbing, cyanosis or edema Skin no rashes or lesions noted General Skin Exam: no breakdown Neuro oriented x3, CN's II-XII intact bilaterally, no focal motor deficits and no sensory deficits noted Sensorium / Orientation: awake and alert Speech: speech normal Psych affect normal Assessment & Plan Assessment/Plan (1) Bilateral pneumonia: PLAN: Plan 1. 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
[2022-09-15] MEDS: Mirtazapine 30 MG Tablet 45 MG PO (22:52)
[2022-09-15] MEDS: MELATONIN 10 MG TABLET 5 MG PO (22:53)
[2022-09-15] MEDS: Docusate Sodium 100 MG Capsule PO (22:53)
[2022-09-15] MEDS: Menthol/Lanolin/Calamine/Znox 113 GM Tube 1 APPLIC TOPICAL (22:53)
[2022-09-15] MEDS: Zolpidem Tartrate 5 MG Tablet PO (23:09)
[2022-09-16] VITALS (9 sets, daily range): BP systolic 103–155; BP diastolic 57–84; PULSE 78–127; RESP 16–23; TEMP 36.6–38.2; O2SAT 90–99
[2022-09-16] MEDS: Acetaminophen 500 MG Tablet 1000 MG PO ×2 (03:10→20:18)
[2022-09-16] MEDS: oxyCODONE 5 MG Tablet 10 MG PO ×5 (03:11→21:17)
[2022-09-16] MEDS: KCl 20MEQ in D5NS 20 MEQ/1,000 ML IV.SOLN. 100 MEQ IV ×2 (04:14→14:37)
[2022-09-16] MEDS: Gabapentin 400 MG Capsule PO ×2 (06:17→14:37)
[2022-09-16] MEDS: Acetylcysteine 800 MG/4 ML VIAL.NEB. 200 MG INHALATION ×3 (06:55→19:40)
[2022-09-16] MEDS: Ipratropium/Albuterol Sulfate 3 ML AMPUL.NEB INHALATION ×3 (06:55→19:40)
[2022-09-16] MEDS: Docusate Sodium 100 MG Capsule PO (08:07)
[2022-09-16] MEDS: carBAMazepine 200 MG Tablet 300 MG PO ×2 (08:07→21:18)
[2022-09-16] MEDS: Pantoprazole Sodium 40 MG Tablet PO (08:08)
[2022-09-16] MEDS: dexAMETHasone 4 MG Tablet 2 MG PO (08:08)
[2022-09-16] MEDS: Menthol/Lanolin/Calamine/Znox 113 GM Tube 1 APPLIC TOPICAL ×2 (08:08→21:23)
--- NOTE | 2022-09-16 08:13 | CASEMGMT ---
Social Work Pt does have a HCPOA on file naming his sister Nika Kam. Pt indicates he does not have a living will and is not up to discussing it at this time. MARTHA Huston
[2022-09-16] MEDS: ALPRAZolam 0.5 MG Tablet PO ×2 (08:15→21:16)
--- NOTE | 2022-09-16 09:20 | RAD_ITS ---
STUDY: X-RAY CHEST REASON FOR EXAM: Male, 66 years old. Fever and cough TECHNIQUE: 2 AP portable views COMPARISON: 09/14/2022 FINDINGS: EKG leads overlie the chest Lungs are mildly hyperexpanded with chronic interstitial changes. Overall improvement compared to the previous study. Previously noted opacifications in both lower lung yi have improved but not yet completely resolved. Continued follow-up recommended to assure complete resolution. Normal size heart. Normal mediastinum and deirdre. Normal visualized pulmonary arteries. Normal visualized aortic arch and descending thoracic aorta. There are diffuse degenerative changes of the visualized thoracic spine. There is degenerative osteoarthritis of the bilateral shoulders. There is no demonstrated abnormality of the visualized soft tissue structures of the upper abdomen. RAD/Chest 1 View (Portable) IMPRESSION: Mildly hyperexpanded lungs with chronic interstitial changes. Resolving bilateral interstitial opacifications since the previous study. Follow-up recommended to assure complete resolution Electronically Signed: Ken Isaac MD at 9:36 EDT ,
[2022-09-16 10:39] LABS: Absolute Lymphocyte Count 1.41 X10^3/uL (0.83-4.51); Absolute Neutrophil Count 15.3 X10^3/uL (2.0-7.7); Basophil# 0.07 X10^3/uL; Basophil% 0.4 % (0-1); Eosinophils% 3.6 % (0-5); Hematocrit 27.1 % (40-54); Hemoglobin 8.9 g/dL (13.0-16.5); Lymphocyte # 1.41 X10^3/ul (0.83-4.51); Lymphocyte % 7.3 % (19-41); Mean Corp Hgb Conc 32.8 g/dL (32-36); Mean Corpuscular Hgb 30.5 pg (27.0-32.0); Mean Corpuscular Volume 92.8 fL (80-94); Monocyte# 1.63 X10^3/uL; Monocyte% 8.5 % (0-10); NRBC Flagged by Analyzer 0 % (0-5); Neutrophil # 15.31 X10^3/uL (2.7-7.7); Neutrophil % 79.6 % (47-70); POSITIVE DIFFERENTIAL YES; Platelet Count 441 K/mm3 (150-450); RBC Distribution Width CV 13.4 % (11.6-14.6); RBC Distribution Width SD 45.9 fl (35.1-43.9); Red Blood Count 2.92 M/mm3 (4.6-6.2); White Blood Count 19.2 K/mm3 (4.4-11.0)
[2022-09-16 10:46] LABS: Differential Indicated SCAN CRITERIA MET
[2022-09-16 11:39] LABS: Platelet Estimate ADEQUATE (ADEQ); Red Cell Morphology NORM C+C NORMAL (NORM C&C)
[2022-09-16] MEDS: guaiFENesin 10 ML UDC (200MG/10ML) 20 ML PO (12:25)
[2022-09-16] MEDS: Ensure Plus High Protein 120 ML LIQUID PO ×3 (14:38→21:17)
--- NOTE | 2022-09-16 19:43 | PN.HOSP_ITS ---
Reason for Visit Reason for Visit: Diagnoses Pneumonia, unspecified organism (09/14/22) Subjective Subjective Patient was seen and examined today, his white blood cell count today was 19.2, he states he does not feel well today but he is difficult to communicate with because he is not able to speak. Patient is currently on 30% oxygen via trach collar, vital signs appear stable. Hemoglobin dropped to 8.9 today. Chest x- ray today showed resolving bilateral interstitial opacifications since previous study. Case management informed me today that the patient is an intermediate usp status and can return anytime he is stable Objective Data Objective Data Vital Signs: Vital Signs Temp Pulse Resp BP Pulse Ox O2 Del Method O2 Flow Rate 98.2 F 83 18 128/76 H 97 Trach Collar 6 09/16/22 17:02 09/16/22 17:02 09/16/22 17:02 09/16/22 17:02 09/16/22 17:02 09/16/22 17:02 09/16/22 08:05 FiO2 30 09/16/22 17:02 Oxygen Flow Rate (L/min) 6 Oxygen Delivery Method Trach Collar Weight: 64.818 kg Body Mass Index (BMI) 20.5 Intake & Output: Intake and Output for Last 24 Hours 09/14/22 09/15/22 09/16/22 23:59 23:59 23:59 Intake Total 1100 / 1100 2645 / 2845 3211.67 / 3211.67 Output Total 500 / 500 1300 / 1300 Balance 1100 / 1100 2145 / 2345 1911.67 / 1911.67 Medical Nutrition Assessment Dietitian: Malnutrition Criteria Met Start: 09/15/22 11:35 Freq: Status: Active Protocol: Document 09/15/22 11:35 (Rec: 09/15/22 11:35 [id number]) Nutrition Malnutrition Evidence of Malnutrition Exists Yes Malnutrition (severe): Chronic Evidenced By Suboptimal Energy Intake ( Severe),Weight Loss (Severe), Physical Changes (Moderate) Clinical Problem Chronic Disease or Condition Related Malnutrition Etiology severe, chronic malnutrition related to inadequate energy intake d/t decreased appetite Signs/Symptoms as evidenced by unintentional 22.4#/14% wt loss x 2 months; estimated PO intake meeting < 75% of estimated energy needs > 3 months; Moderate muscle wasting/fat loss evident per physical exam in orbital, temporal, clavicle, and acromion areas. Status Active Problem Recommendation Dietitian Recommendations/Changes continue regular diet as tolerated; consider ACTIVITY THERAPIST consult if issues chewing/ swallowing evident. Will increase ensure to 4x/day w/ medpass. Lab / Micro Data Result Diagrams: 09/17/22 06:45 09/15/22 06:00 Labs: Laboratory Results - last 24 hr 09/16/22 10:23: WBC 19.2 H, RBC 2.92 L, Hgb 8.9 L, Hct 27.1 L, MCV 92.8, MCH 30.5, MCHC 32.8, RDW Std Deviation 45.9 H, RDW Coeff of Judd 13.4, Plt Count 441, MPV 9.0, Immature Gran % (Auto) 0.600, Neut % (Auto) 79.6 H, Lymph % (Auto) 7.3 L, [place] % (Auto) 8.5, Eos % (Auto) 3.6, Baso % (Auto) 0.4, Absolute Neuts (auto) 15.3 H, Absolute Lymphs (auto) 1.41, Nucleated RBC % 0, Diff Path Review May foll, Platelet Estimate ADEQUATE, RBC Morphology NORM C+C Radiography Diagnostic Testing: Radiology Impression Chest X-Ray 09/16/22 09:20 IMPRESSION: Mildly hyperexpanded lungs with chronic interstitial changes. Resolving bilateral interstitial opacifications since the previous study. Follow-up recommended to assure complete resolution Electronically Signed: Ken Isaac MD at 9:36 EDT Reading Location ID and State: [address] [place] [address] , Service support , Physical Exam Narrative alert, oriented x3 and no apparent distress Constitutional Narrative: Patient appears older than his stated age General Appearance: cooperative, well kempt and well developed Orientation / Consciousness: awake, oriented to person, oriented to place and oriented to time HEENT normocephalic, head/scalp atraumatic and moist oral mucous membranes Eyes PERRL, EOMs intact bilaterally and conjunctivae normal Neck supple, no JVD and thyroid normal Neck Narrative: Patient has a permanent trach Resp normal respiratory effort, no retractions, no use of accessory muscles and clear to auscultation bilaterally Auscultation: Negative for rales, rhonchi or wheezes Cardio regular rate, regular rhythm, S1 normal heart sound, S2 normal heart sound, no murmurs, no rub and no gallops GI normal to inspection, nondistended, normoactive bowel sounds, soft to palpation, non-tender and non-distended Extremity normal to inspection and no clubbing, cyanosis or edema Skin no rashes or lesions noted General Skin Exam: no breakdown Neuro oriented x3, CN's II-XII intact bilaterally, no focal motor deficits and no sensory deficits noted Sensorium / Orientation: awake and alert Speech: speech normal Psych affect normal Assessment & Plan Assessment/Plan (1) Sepsis: (2) Bilateral pneumonia: PLAN: Plan 1. 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 intake meeting less than 75% of estimated energy needs more than 3 months-continue regular diet as tolerated, increase Ensure to 4 times a day with [employer], nutritional services participating in his care Clinical time spent by myself addressing the patient's medical issues, reviewing all the data, and collaborating with patient's care team: 36 minutes Charges/Coding Visit Charges Inpatient E&M: 28374 Subs Hosp L2
[2022-09-16] MEDS: Mirtazapine 30 MG Tablet 45 MG PO (21:16)
[2022-09-16] MEDS: Zolpidem Tartrate 5 MG Tablet PO (21:17)
[2022-09-17] VITALS (10 sets, daily range): BP systolic 97–188; BP diastolic 52–93; PULSE 71–111; RESP 12–24; TEMP 36.7–36.9; O2SAT 89–98
[2022-09-17] MEDS: KCl 20MEQ in D5NS 20 MEQ/1,000 ML IV.SOLN. 100 MEQ IV ×3 (00:19→23:58)
[2022-09-17] MEDS: Acetylcysteine 800 MG/4 ML VIAL.NEB. 200 MG INHALATION ×4 (00:25→19:25)
[2022-09-17] MEDS: Ipratropium/Albuterol Sulfate 3 ML AMPUL.NEB INHALATION ×4 (00:25→19:25)
[2022-09-17] MEDS: oxyCODONE 5 MG Tablet 10 MG PO ×4 (01:22→20:21)
[2022-09-17 07:18] LABS: Absolute Lymphocyte Count 1.94 X10^3/uL (0.83-4.51); Basophil# 0.07 X10^3/uL; Basophil% 0.4 % (0-1); Eosinophil# 0.49 X10^3/uL; Eosinophils% 2.6 % (0-5); Hematocrit 28.1 % (40-54); Hemoglobin 8.7 g/dL (13.0-16.5); Lymphocyte # 1.94 X10^3/ul (0.83-4.51); Lymphocyte % 10.3 % (19-41); Mean Corpuscular Hgb 29.6 pg (27.0-32.0); Mean Corpuscular Volume 95.6 fL (80-94); Mean Platelet Vol. 9.2 fl (6.2-12.0); Monocyte# 1.23 X10^3/uL; Monocyte% 6.5 % (0-10); NRBC Flagged by Analyzer 0 % (0-5); Neutrophil # 15.01 X10^3/uL (2.7-7.7); Neutrophil % 79.6 % (47-70); Platelet Count 468 K/mm3 (150-450); RBC Distribution Width CV 13.5 % (11.6-14.6); RBC Distribution Width SD 47.7 fl (35.1-43.9); Red Blood Count 2.94 M/mm3 (4.6-6.2); White Blood Count 18.9 K/mm3 (4.4-11.0)
[2022-09-17] MEDS: Menthol/Lanolin/Calamine/Znox 113 GM Tube 1 APPLIC TOPICAL ×2 (09:47→20:32)
[2022-09-17] MEDS: carBAMazepine 200 MG Tablet 300 MG PO ×2 (09:48→20:33)
[2022-09-17] MEDS: Docusate Sodium 100 MG Capsule PO ×2 (09:48→20:33)
[2022-09-17] MEDS: dexAMETHasone 4 MG Tablet 2 MG PO (09:48)
[2022-09-17] MEDS: ALPRAZolam 0.5 MG Tablet PO ×2 (10:07→20:32)
[2022-09-17] MEDS: Acetaminophen 500 MG Tablet 1000 MG PO (10:57)
[2022-09-17] MEDS: Gabapentin 400 MG Capsule PO ×2 (13:26→20:33)
--- NOTE | 2022-09-17 17:16 | PCM.PN.HOSP ---
Reason for Visit Reason for Visit: Diagnoses Sepsis, unspecified organism (09/14/22) Pneumonia, unspecified organism (09/14/22) Subjective Subjective Patient was seen and examined today, I talked with his who was in the room at the time of my visit, patient at times tries to talk but will write down what he is trying to say, he does not appear to be in any distress, patient white blood cell count today was 18.9. Patient's sputum culture grew out Serratia marcescens, presumptive Danielle albicans, and Pseudomonas aeruginosa. Objective Data Objective Data Vital Signs: Vital Signs Temp Pulse Resp BP Pulse Ox O2 Del Method O2 Flow Rate 98.4 F 90 18 124/81 H 97 Trach Collar 6 09/17/22 10:53 09/17/22 13:38 09/17/22 13:38 09/17/22 10:53 09/17/22 10:53 09/17/22 15:00 09/16/22 08:05 FiO2 30 09/17/22 15:00 Oxygen Flow Rate (L/min) 6 Oxygen Delivery Method Trach Collar Weight: 64.818 kg Body Mass Index (BMI) 20.5 Intake & Output: Intake and Output for Last 24 Hours 09/15/22 09/16/22 09/17/22 23:59 23:59 23:59 Intake Total 2645 / 2845 3211.67 / 3211.67 2171 / 2171 Output Total 500 / 500 2750 / 2750 Balance 2145 / 2345 461.67 / 461.67 2171 / 2171 Medical Nutrition Assessment Dietitian: Malnutrition Criteria Met Start: 09/15/22 11:35 Freq: Status: Active Protocol: Document 09/15/22 11:35 (Rec: 09/15/22 11:35 [id number]) Nutrition Malnutrition Evidence of Malnutrition Exists Yes Malnutrition (severe): Chronic Evidenced By Suboptimal Energy Intake ( Severe),Weight Loss (Severe), Physical Changes (Moderate) Clinical Problem Chronic Disease or Condition Related Malnutrition Etiology severe, chronic malnutrition related to inadequate energy intake d/t decreased appetite Signs/Symptoms as evidenced by unintentional 22.4#/14% wt loss x 2 months; estimated PO intake meeting < 75% of estimated energy needs > 3 months; Moderate muscle wasting/fat loss evident per physical exam in orbital, temporal, clavicle, and acromion areas. Status Active Problem Recommendation Dietitian Recommendations/Changes continue regular diet as tolerated; consider CAREER RESOURCE SPECIALIST consult if issues chewing/ swallowing evident. Will increase ensure to 4x/day w/ medpass. Lab / Micro Data Result Diagrams: 09/17/22 06:45 09/15/22 06:00 Labs: Laboratory Results - last 24 hr 09/17/22 06:45: WBC 18.9 H, RBC 2.94 L, Hgb 8.7 L, Hct 28.1 L, MCV 95.6 H, MCH 29.6, MCHC 31.0 L D, RDW Std Deviation 47.7 H, RDW Coeff of Judd 13.5, Plt Count 468 H, MPV 9.2, Immature Gran % (Auto) 0.600, Neut % (Auto) 79.6 H, Lymph % (Auto) 10.3 L, [place] % (Auto) 6.5, Eos % (Auto) 2.6, Baso % (Auto) 0.4, Absolute Neuts (auto) 15.0 H, Absolute Lymphs (auto) 1.94, Nucleated RBC % 0 Micro: Microbiology 09/14/22 17:05 Blood Culture (Wb) - Left Hand Blood Culture - Preliminary No growth in 48 hours. 09/14/22 14:09 Blood Culture (Wb) - Left Hand Blood Culture - Preliminary No growth in 48 hours. Physical Exam Narrative alert, oriented x3 and no apparent distress Constitutional Narrative: Patient appears older than his stated age General Appearance: cooperative, well kempt and well developed Orientation / Consciousness: awake, oriented to person, oriented to place HEENT normocephalic, head/scalp atraumatic and moist oral mucous membranes Eyes PERRL, EOMs intact bilaterally and conjunctivae normal Neck supple, no JVD and thyroid normal Neck Narrative: Patient has a permanent trach Resp normal respiratory effort, no retractions, no use of accessory muscles and clear to auscultation bilaterally Auscultation: Negative for rales, rhonchi or wheezes Cardio regular rate, regular rhythm, S1 normal heart sound, S2 normal heart sound, no murmurs, no rub and no gallops GI normal to inspection, nondistended, normoactive bowel sounds, soft to palpation, non-tender and non-distended Extremity normal to inspection and no clubbing, cyanosis or edema Skin no rashes or lesions noted General Skin Exam: no breakdown Neuro oriented x3, CN's II-XII intact bilaterally, no focal motor deficits and no sensory deficits noted Sensorium / Orientation: awake and alert Speech: Patient has a tracheostomy Psych affect normal Assessment & Plan Assessment/Plan (1) Sepsis: (2) Bilateral pneumonia: PLAN: Plan 1. 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 intake meeting less than 75% of estimated energy needs more than 3 months-continue regular diet as tolerated, increase Ensure to 4 times a day with [employer], nutritional services participating in his care Clinical time spent by myself addressing the patient's medical issues, reviewing all the data, and collaborating with patient's care team: 36 minutes Charges/Coding Visit Charges Inpatient E&M: 87217 Subs Hosp L2
[2022-09-17] MEDS: MELATONIN 10 MG TABLET 5 MG PO (20:33)
[2022-09-17] MEDS: Mirtazapine 30 MG Tablet 45 MG PO (20:33)
[2022-09-17] MEDS: Zolpidem Tartrate 5 MG Tablet PO (20:38)
[2022-09-18 01:55] VITALS: PULSE 113; RESP 12
[2022-09-18] MEDS: Ipratropium/Albuterol Sulfate 3 ML AMPUL.NEB INHALATION ×3 (01:55→12:26)
[2022-09-18] MEDS: oxyCODONE 5 MG Tablet 10 MG PO ×3 (01:56→13:24)
[2022-09-18 02:29] VITALS: BP 153/85; PULSE 110; RESP 20; TEMP 37.2; O2SAT 94
[2022-09-18] MEDS: Acetaminophen 500 MG Tablet 1000 MG PO ×2 (02:32→15:53)
[2022-09-18 05:52] LABS: Absolute Lymphocyte Count 0.74 X10^3/uL (0.83-4.51); Absolute Neutrophil Count 20.6 X10^3/uL (2.0-7.7); Basophil# 0.07 X10^3/uL; Basophil% 0.3 % (0-1); Eosinophils% 1.3 % (0-5); Hematocrit 27.3 % (40-54); Hemoglobin 8.8 g/dL (13.0-16.5); Lymphocyte # 0.74 X10^3/ul (0.83-4.51); Lymphocyte % 3.2 % (19-41); Mean Corp Hgb Conc 32.2 g/dL (32-36); Mean Corpuscular Hgb 30.2 pg (27.0-32.0); Mean Corpuscular Volume 93.8 fL (80-94); Mean Platelet Vol. 9.3 fl (6.2-12.0); Monocyte% 6.4 % (0-10); NRBC Flagged by Analyzer 0 % (0-5); Neutrophil # 20.61 X10^3/uL (2.7-7.7); Neutrophil % 88.2 % (47-70); POSITIVE DIFFERENTIAL YES; Platelet Count 455 K/mm3 (150-450); RBC Distribution Width CV 13.5 % (11.6-14.6); RBC Distribution Width SD 46.6 fl (35.1-43.9); Red Blood Count 2.91 M/mm3 (4.6-6.2); White Blood Count 23.4 K/mm3 (4.4-11.0)
[2022-09-18 06:14] LABS: Differential Indicated SCAN CRITERIA MET
[2022-09-18] MEDS: Acetylcysteine 800 MG/4 ML VIAL.NEB. 200 MG INHALATION ×2 (07:09→12:26)
[2022-09-18 07:10] VITALS: PULSE 93; RESP 18; O2SAT 94
[2022-09-18 07:21] LABS: Differential Comment SCANNED
[2022-09-18 07:55] VITALS: BP 130/66; PULSE 110; RESP 18; TEMP 37; O2SAT 96
[2022-09-18] MEDS: dexAMETHasone 4 MG Tablet 2 MG PO (07:58)
[2022-09-18] MEDS: Menthol/Lanolin/Calamine/Znox 113 GM Tube 1 APPLIC TOPICAL (07:58)
[2022-09-18] MEDS: carBAMazepine 200 MG Tablet 300 MG PO (07:59)
[2022-09-18] MEDS: Docusate Sodium 100 MG Capsule PO (10:03)
[2022-09-18] MEDS: KCl 20MEQ in D5NS 20 MEQ/1,000 ML IV.SOLN. 100 MEQ IV (10:03)
[2022-09-18] MEDS: ALPRAZolam 0.5 MG Tablet PO (10:03)
--- NOTE | 2022-09-18 12:14 | PCM.TXEXTCAR ---
Diet Diet Order/Speech Therapy: 09/14/22 17:52 Diet: Regular - General Food consistency:: Regular Liquid Consistency:: Regular/Thin Routine Orders/Code Status Routine Lab Work: CBC (in two days) Therapies Weight Bearing: Full weight bearing (with walker) Problem/Diagnosis (1) Sepsis: Status: Acute Code(s): A41.9 - Sepsis, unspecified organism (2) Bilateral pneumonia: Status: Acute Code(s): J18.9 - Pneumonia, unspecified organism (3) Malignant neoplasm of larynx: Status: Acute Code(s): C32.9 - Malignant neoplasm of larynx, unspecified Plan 1. 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 intake meeting less than 75% of estimated energy needs more than 3 months-continue regular diet as tolerated, increase Ensure to 4 times a day with [employer], nutritional services participating in his care Clinical time spent by myself addressing the patient's medical issues, reviewing all the data, and collaborating with patient's care team: 36 minutes Allergies/Procedures Done in Hospital Allergies No Known Allergies Allergy (Verified 09/14/22 14:06) Procedures: None Type of Care/Length of Stay Estimated LOS: More Than 30 Days Type of Care Needed: Intermediate Rehab Potential: Fair Prognosis: Fair Additional Orders/Day of Discharge H&P will serve as current which was dated: 09/14/22 Day of Discharge: 09/18/22 Dietary and Speech Recommendations Dietitian Recommendations/Changes: continue regular diet as tolerated; consider EXPANDER MACHINE OPERATOR consult if issues chewing/swallowing evident. Will increase ensure to 4x/day w/ medpass. Discharge Plan Admission Admit Date/Time: 09/14/22 17:50 Primary Reason for Your Visit: pneumonia Attending Provider: Connor Verma Primary Care Provider: Guillermo Pinto Consulting Providers: Evie Tomas Discharge Orders/Prescriptions Prescriptions: New albuterol sulfate 2.5 mg /3 mL (0.083 %) Solution For Nebulization 2.5 mg inhalation Q2H PRN PRN (Reason: Shortness Of Breath) Qty: 0 0RF menthol-zinc oxide [Calmoseptine] 0.44-20.6 % Ointment 1 applic topical BID Qty: 1 0RF Protocol: *Topical Application Instructions APPLICATION INSTRUCTIONS: bilateral buttocks oxycodone 10 mg tablet 10 mg PO Q4H PRN (Reason: pain) 4 Days Qty: 10 0RF alprazolam [Xanax] 0.5 mg tablet 0.5 mg PO BID 5 Days Qty: 10 0RF levofloxacin 500 mg tablet 500 mg PO DAILY Qty: 7 0RF Rx Instructions: start on 09/19/22 Continued gabapentin 400 mg capsule 400 mg PO TID guaifenesin 100 mg/5 mL Liquid 200 mg PO Q4H PRN (Reason: Cough) dexamethasone 2 mg tablet 2 mg PO DAILY pantoprazole 40 mg tablet,delayed release (DR/EC) 40 mg PO DAILY mirtazapine 45 mg tablet 45 mg PO DAILY zolpidem 5 mg tablet 5 mg PO DAILY carbamazepine 300 mg capsule, ER multiphase 12 hr 300 mg PO BID docusate sodium [Colace] 100 mg Capsule 100 mg PO BID melatonin 5 mg Tablet 5 mg PO QHS alprazolam 0.5 mg tablet 0.5 mg PO BID Qty: 10 0RF oxycodone 10 mg tablet 10 mg PO Q4H PRN PRN (Reason: Pain) 4 Days Qty: 10 0RF Referrals / Follow Up: Guillermo Pinto MD [Primary Care Provider] - Disposition Disposition (needs filled in before D/C Order can be placed): [facility]
[2022-09-18 12:26] VITALS: PULSE 85; RESP 18
--- NOTE | 2022-09-18 12:45 | PCM.DC.SUM ---
Providers Date of Admission: 09/14/22 Date of Discharge: 09/18/22 Primary Care Physician: Dr. Guillermo Pinto MD Reason For Visit: ASPIRATION PNEUMONIA Diagnosis Discharge Diagnosis (1) Bilateral pneumonia: Status: Acute Code(s): J18.9 - Pneumonia, unspecified organism (2) Malignant neoplasm of larynx: Status: Acute Code(s): C32.9 - Malignant neoplasm of larynx, unspecified Plan 1. 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 intake meeting less than 75% of estimated energy needs more than 3 months-continue regular diet as tolerated, increase Ensure to 4 times a day with [employer], nutritional services participating in his care Clinical time spent by myself addressing the patient's medical issues, reviewing all the data, and collaborating with patient's care team: 36 minutes Medications at Discharge Home Medications carbamazepine 300 mg capsule,extended release [id number] 300 mg PO BID . 07/11/22 dexamethasone 2 mg tablet 2 mg PO DAILY . 07/11/22 docusate sodium 100 mg capsule (Colace) 100 mg PO BID CONSTIPATION 07/11/22 gabapentin 400 mg capsule 400 mg PO TID PAIN 07/11/22 guaifenesin 100 mg/5 mL oral liquid 200 mg PO Q4H PRN Cough 07/11/22 melatonin 5 mg tablet 5 mg PO QHS SLEEP 07/11/22 mirtazapine 45 mg tablet 45 mg PO DAILY . 07/11/22 pantoprazole 40 mg tablet,delayed release 40 mg PO DAILY GERD 07/11/22 zolpidem 5 mg tablet 5 mg PO DAILY SLEEP 07/11/22 albuterol sulfate 2.5 mg/3 mL (0.083 %) solution for nebulization 2.5 mg (3 mL) inhalation Q2H PRN PRN Shortness Of Breath #0 mL 09/18/22 alprazolam 0.5 mg tablet 0.5 mg PO BID ANXIETY #10 tabs 09/18/22 alprazolam 0.5 mg tablet (Xanax) 0.5 mg PO BID 5 days #10 tabs 09/18/22 levofloxacin 500 mg tablet 500 mg PO DAILY #7 tabs 09/18/22 menthol 0.44 %-zinc oxide 20.6 % topical ointment (Calmoseptine) 1 applic topical BID #1 g 09/18/22 oxycodone 10 mg tablet 10 mg PO Q4H PRN PRN Pain 4 days #10 tabs 09/18/22 oxycodone 10 mg tablet 10 mg PO Q4H PRN pain 4 days #10 tabs 09/18/22 Hospital Course Operations None Procedures None Summary of Care Provided Minutes Spent on Discharge: 31 Hospital Course: This 66-year-old white male who is a resident at a nursing facility was sent in by squad from the nursing facility for productive cough with green sputum production from his trach site. There is no fever. Labs obtained in the emergency room showed an elevated white blood cell count of 22.1, patient's potassium was low at 3.2, sodium was low at 129, chest x-ray revealed bilateral pneumonia with an enlarged right upper lobe finding which was chronic. Patient was admitted to [place] [address], started on IV antibiotics, he was on dexamethasone at the nursing facility and his white count remained elevated during his hospital stay, it was felt to be in part secondary to his dexamethasone usage. Patient's sputum grew out Pseudomonas, Serratia, and Danielle albicans, Danielle albicans was not felt to be a pathogen however. Patient improved during his hospitalization, on 09/18/2022, patient was seen and examined:alert, oriented x3 and no apparent distress Constitutional Narrative: Patient appears older than his stated age General Appearance: cooperative, well kempt and well developed Orientation / Consciousness: awake, oriented to person, oriented to place HEENT normocephalic, head/scalp atraumatic and moist oral mucous membranes Eyes PERRL, EOMs intact bilaterally and conjunctivae normal Neck supple, no JVD and thyroid normal Neck Narrative: Patient has a permanent trach Resp normal respiratory effort, no retractions, no use of accessory muscles and clear to auscultation bilaterally Auscultation: Negative for rales, rhonchi or wheezes Cardio regular rate, regular rhythm, S1 normal heart sound, S2 normal heart sound, no murmurs, no rub and no gallops GI normal to inspection, nondistended, normoactive bowel sounds, soft to palpation, non-tender and non-distended Extremity normal to inspection and no clubbing, cyanosis or edema Skin no rashes or lesions noted General Skin Exam: no breakdown Neuro oriented x3, CN's II-XII intact bilaterally, no focal motor deficits and no sensory deficits noted Sensorium / Orientation: awake and alert Speech: Patient has a tracheostomy Psych affect normal Patient was felt to be stable for return to the long term on 09/18/2022, I discussed his care with Dr. Pinto who is his primary care physician. Medical Records Data Medical Nutrition Assessment Dietitian: Malnutrition Criteria Met Start: 09/15/22 11:35 Freq: Status: Active Protocol: Document 09/15/22 11:35 (Rec: 09/15/22 11:35 AG [id number]) Nutrition Malnutrition Evidence of Malnutrition Exists Yes Malnutrition (severe): Chronic Evidenced By Suboptimal Energy Intake ( Severe),Weight Loss (Severe), Physical Changes (Moderate) Clinical Problem Chronic Disease or Condition Related Malnutrition Etiology severe, chronic malnutrition related to inadequate energy intake d/t decreased appetite Signs/Symptoms as evidenced by unintentional 22.4#/14% wt loss x 2 months; estimated PO intake meeting < 75% of estimated energy needs > 3 months; Moderate muscle wasting/fat loss evident per physical exam in orbital, temporal, clavicle, and acromion areas. Status Active Problem Recommendation Dietitian Recommendations/Changes continue regular diet as tolerated; consider SINGE MACHINE OPERATOR consult if issues chewing/ swallowing evident. Will increase ensure to 4x/day w/ medpass. Weight / BMI Weight Weight: 64.818 kg Body Mass Index (BMI) 20.5 ABG / Lab / Microbiology Data Result Diagrams: 09/18/22 04:44 09/15/22 06:00 Laboratory: Laboratory Results - last 24 hr 09/18/22 04:44: WBC 23.4 H, RBC 2.91 L, Hgb 8.8 L, Hct 27.3 L, MCV 93.8, MCH 30.2, MCHC 32.2, RDW Std Deviation 46.6 H, RDW Coeff of Judd 13.5, Plt Count 455 H, MPV 9.3, Immature Gran % (Auto) 0.600, Neut % (Auto) 88.2 H, Lymph % (Auto) 3.2 L, Sandoval % (Auto) 6.4, Eos % (Auto) 1.3, Baso % (Auto) 0.3, Absolute Neuts (auto) 20.6 H, Absolute Lymphs (auto) 0.74 L, Nucleated RBC % 0, Differential Comment SCANNED Microbiology: Microbiology 09/14/22 17:05 Blood Culture (Wb) - Left Hand Blood Culture - Preliminary No growth in 48 hours. 09/14/22 14:09 Blood Culture (Wb) - Left Hand Blood Culture - Preliminary No growth in 48 hours. Meaningful Use Info Meaningful Use Diagnoses (Choose all that apply): None applicable Discharge Plan Admission Admit Date/Time: 09/14/22 17:50 Primary Reason for Your Visit: pneumonia Attending Provider: Connor Verma Primary Care Provider: Guillermo Pinto Consulting Providers: Evie Tomas Discharge Orders/Prescriptions Prescriptions: New albuterol sulfate 2.5 mg /3 mL (0.083 %) Solution For Nebulization 2.5 mg inhalation Q2H PRN PRN (Reason: Shortness Of Breath) Qty: 0 0RF menthol-zinc oxide [Calmoseptine] 0.44-20.6 % Ointment 1 applic topical BID Qty: 1 0RF Protocol: *Topical Application Instructions APPLICATION INSTRUCTIONS: bilateral buttocks oxycodone 10 mg tablet 10 mg PO Q4H PRN (Reason: pain) 4 Days Qty: 10 0RF alprazolam [Xanax] 0.5 mg tablet 0.5 mg PO BID 5 Days Qty: 10 0RF levofloxacin 500 mg tablet 500 mg PO DAILY Qty: 7 0RF Rx Instructions: start on 09/19/22 Continued gabapentin 400 mg capsule 400 mg PO TID guaifenesin 100 mg/5 mL Liquid 200 mg PO Q4H PRN (Reason: Cough) dexamethasone 2 mg tablet 2 mg PO DAILY pantoprazole 40 mg tablet,delayed release (DR/EC) 40 mg PO DAILY mirtazapine 45 mg tablet 45 mg PO DAILY zolpidem 5 mg tablet 5 mg PO DAILY carbamazepine 300 mg capsule, ER multiphase 12 hr 300 mg PO BID docusate sodium [Colace] 100 mg Capsule 100 mg PO BID melatonin 5 mg Tablet 5 mg PO QHS alprazolam 0.5 mg tablet 0.5 mg PO BID Qty: 10 0RF oxycodone 10 mg tablet 10 mg PO Q4H PRN PRN (Reason: Pain) 4 Days Qty: 10 0RF Referrals / Follow Up: Guillermo Pinto MD [Primary Care Provider] - Disposition Disposition (needs filled in before D/C Order can be placed): Longterm Facility Charges/Coding Visit Charges Inpatient E&M: 27269 Disch Hosp >30min
[2022-09-18 13:19] VITALS: BP 139/74; PULSE 101; RESP 18; TEMP 36.7; O2SAT 100
--- NOTE | 2022-09-18 14:51 | NURSING ---
Called report to [facility] [phone] nurse Nerissa malhotra to be picked up with in the hr.
[2022-09-20 12:41] LABS: Pathologist Review Reviewed
== END 2022-09-18 16:25 | disposition skilled nursing facility (03) | DRG 178 ==
LOC: ED 16:45 → MS3 18:04
PROVIDERS: Admitting Provider Internal Medicine; Emergency Provider Emergency Medicine; PCP Family Medicine; Visit Provider Internal Medicine
DX: J15.1 Pneumonia due to Pseudomonas (principal); J44.0 Chronic obstructive pulmonary disease with (acute) lower respiratory infection; Z93.0 Tracheostomy status; C32.1 Malignant neoplasm of supraglottis; J15.6 Pneumonia due to other Gram-negative bacteria; F41.9 Anxiety disorder, unspecified; Z68.20 Body mass index [BMI] 20.0-20.9, adult; Z79.899 Other long term (current) drug therapy; Z87.891 Personal history of nicotine dependence
CPT/HCPCS: 31720; 36415; 71045; 71046; 80048; 80053; 83735; 83930; 83935; 84100; 84300; 85025; 87040; 94640; 97110; 97162; 97166; 97535; 97802; 99285; J7050; J7120; A4216